=== PATIENT | male | born 1965 | race Caucasian/White ===

== ENCOUNTER 2017-01-10 20:55 | Emergency (ER) | payer OTHER ==
[2017-01-10 21:10] VITALS: BMI 27.3
[2017-01-10 21:36] LABS: URINE APPEARANCE CLEAR; URINE BILIRUBIN NEGATIVE (NEGATIVE); URINE BLOOD NEGATIVE (NEGATIVE); URINE COLOR LTYELLOW; URINE GLUCOSE (UA) NEGATIVE (NEGATIVE); URINE KETONE NEGATIVE (NEGATIVE); URINE LEUK ESTERASE NEGATIVE (NEGATIVE); URINE NITRITE NEGATIVE (NEGATIVE); URINE PROTEIN NEGATIVE (NEGATIVE); URINE UROBILINOGEN 2.0 E.U/dl E.U./dl (0.2-1.0)
[2017-01-10 21:53] LABS: BASOPHIL 0.6 % (0-2.0); EOSINOPHIL 2.9 % (0-4.5); MCH 33.6 pg (25.7-33.7); MCHC 34.9 g/dl (32.0-35.9); MEAN CELL VOLUME 96.1 fl (80-96); MEAN PLT VOLUME 8.8 fl (7.5-11.1); NEUTROPHILS 57.2 % (42.8-82.8); PLATELET COUNT 191 K/MM3 (134-434); RDW 13.6 % (11.9-15.9); WHITE BLOOD COUNT 9.1 K/mm3 (4.0-10.0)
[2017-01-10 22:32] LABS: ALBUMIN 3.6 g/dl (3.4-5.0); ALK PHOS 86 U/L (45-117); ANION GAP 11 (8-16); BILIRUBIN,TOTAL 0.2 mg/dL (0.2-1.0); CALCIUM 8.6 mg/dL (8.5-10.1); CO2 27 mmol/L (21-32); CREATININE 0.6 mg/dL (0.7-1.3); GLUCOSE,RANDOM 105 mg/dL (74-106); SGOT/AST 18 U/L (15-37); SGPT/ALT 23 U/L (12-78)
[2017-01-10] MEDS ORDERED: ACETAMINOPHEN 1000 MG/100 ML VIAL (NON FORMULARY) IVPB ONE (23:06)
--- NOTE | 2017-01-10 23:13 | PDOC ---
History of Present Illness <Annette Monroy - Last Filed: 01/11/17 01:40> - General History Source: Patient Exam Limitations: No Limitations - History of Present Illness Initial Comments: 01/10/17 23:14 Patient is a 51-year-old male complaining of upper abdominal pain 2-3 weeks, bright red stool per rectum 4 days and today left upper back pain. He states pain is 9/10, sharp, continuous, crampy like and the upper back pain is worse with movement. There are no alleviating factors. States that when he gets the abdominal pain he goes to the bathroom and stools are bright red. He denies any straining to pass a bowel, no hemorrhoids. He has no nausea, vomiting, hemoptysis, dizziness, weakness. He drinks only on the weekend. Smokes half a pack per day. Past medical history: Negative Past social history: Drinks on the weekends, half pack a day cigarettes. Family history: Noncontributory NKDA: None GENERAL/CONSTITUTIONAL: [No fever or chills. No weakness. No weight change.] HEAD, EYES, EARS, NOSE AND THROAT: [No change in vision. No ear pain or discharge. No sore throat.] CARDIOVASCULAR: [No chest pain or shortness of breath.] RESPIRATORY: [No cough, wheezing, or hemoptysis.] GASTROINTESTINAL: [No nausea, vomiting, diarrhea or constipation. No rectal bleeding.] GENITOURINARY: [No dysuria, frequency, or change in urination.] MUSCULOSKELETAL: [No joint or muscle swelling or pain. No neck or back pain.] SKIN AND BREASTS: [No rash or easy bruising.] NEUROLOGIC: [No headache, vertigo, loss of consciousness, or loss of sensation.] PSYCHIATRIC: [No depression or anxiety.] ENDOCRINE: [No increased thirst. No abnormal weight change.] HEMATOLOGIC/LYMPHATIC: [No anemia, easy bleeding, or history of blood clots.] ALLERGIC/IMMUNOLOGIC: [No hives or skin allergy. No latex allergy.] GENERAL: [The patient is awake, alert, and fully oriented, in mild distress] HEAD: [Normal with no signs of trauma.] EYES: [Pupils equal, round and reactive to light, extraocular movements intact, sclera anicteric, conjunctiva clear.] ENT: [Ears normal, nares patent, oropharynx clear without exudates. Moist mucous membranes.] NECK: [Normal range of motion, supple without lymphadenopathy, JVD, or masses.] LUNGS: [Breath sounds equal, clear to auscultation bilaterally. No wheezes, and no crackles, (+) tenderness to left back HEART: [Regular rate and rhythm, normal S1 and S2 without murmur, rub.] ABDOMEN: [Soft, (+) tenderness upper abd to palp, normoactive bowel sounds. No guarding, no rebound. No masses.] EXTREMITIES: [Normal range of motion, no edema. No clubbing or cyanosis. No cords, erythema, or tenderness.] RECTAL: no gross blood, blood tingled stool. NEUROLOGICAL: [Cranial nerves II through XII grossly intact. Normal speech, normal gait.] PSYCH: [Normal mood, normal affect.] SKIN: [Warm, Dry, normal turgor, no rashes or lesions noted.] <Nikolas Ford - Last Filed: 01/11/17 03:08> - General Chief Complaint: Pain, Acute Stated Complaint: BACK PAIN Time Seen by Provider: 01/10/17 21:58 Past History <Annette Monroy - Last Filed: 01/11/17 01:40> - Psycho/Social/Smoking Cessation Hx Suicidal Ideation: No Smoking History: Current every day smoker Information on smoking cessation initiated: No <Nikolas Ford - Last Filed: 01/11/17 03:08> - Past Medical History Allergies/Adverse Reactions: Allergies Allergy/AdvReac Type Severity Reaction Status Date / Time No Known Allergies Allergy Verified 01/10/17 21:05 Home Medications: Ambulatory Orders Ibuprofen [Motrin -] 600 mg PO TID 01/10/17 *Physical Exam - Vital Signs Last Vital Signs Temp Pulse Resp BP Pulse Ox 98.9 F 73 18 146/80 99 01/10/17 21:09 01/10/17 21:09 01/10/17 21:09 01/10/17 21:09 01/10/17 21:09 <Annette Monroy - Last Filed: 01/11/17 01:40> - Vital Signs Last Vital Signs Temp Pulse Resp BP Pulse Ox 98.9 F 73 18 146/80 99 01/10/17 21:09 01/10/17 21:09 01/10/17 21:09 01/10/17 21:09 01/10/17 21:09 <Nikolas Ford - Last Filed: 01/11/17 03:08> ED Treatment Course - LABORATORY CBC & Chemistry Diagram: 01/10/17 21:43 01/10/17 21:43 - ADDITIONAL ORDERS Additional order review: Laboratory Results 01/10/17 01/10/17 01/10/17 23:10 21:43 21:10 Sodium 141 Potassium 4.0 Chloride 103 Carbon Dioxide 27 Anion Gap 11 BUN 12 Creatinine 0.6 L Creat Clearance w eGFR > 60 Random Glucose 105 Calcium 8.6 Total Bilirubin 0.2 AST 18 ALT 23 Alkaline Phosphatase 86 Total Protein 7.0 Albumin 3.6 Urine Color Ltyellow Urine Appearance Clear Urine pH 7.0 Ur Specific [place] 1.020 Urine Protein Negative Urine Glucose (UA) Negative Urine Ketones Negative Urine Blood Negative Urine Nitrite Negative Urine Bilirubin Negative Urine Urobilinogen 2.0 e.u/dl Ur Leukocyte Esterase Negative Stool Occult Blood Positive 01/10/17 21:43 RBC 4.37 MCV 96.1 H MCHC 34.9 RDW 13.6 MPV 8.8 Neutrophils % 57.2 Lymphocytes % 33.9 Monocytes % 5.4 Eosinophils % 2.9 Basophils % 0.6 - Medications Given in the ED: ED Medications Discontinued Medications Generic Name Dose Route Start Last Admin Trade Name Sauravq PRN Reason Stop Dose Admin Acetaminophen 1,000 mg 01/10/17 23:06 01/10/17 23:57 Ofirmev Injection - IVPB 01/10/17 23:07 1,000 mg ONCE ONE Administration Morphine Sulfate 4 mg 01/10/17 23:23 01/10/17 23:26 Morphine Injection - IVPUSH 01/10/17 23:24 4 mg ONCE ONE Administration <Annette Monroy - Last Filed: 01/11/17 01:40> - LABORATORY CBC & Chemistry Diagram: 01/11/17 01:45 01/10/17 21:43 - ADDITIONAL ORDERS Additional order review: Laboratory Results 01/10/17 01/10/17 21:43 21:10 Sodium 141 Potassium 4.0 Chloride 103 Carbon Dioxide 27 Anion Gap 11 BUN 12 Creatinine 0.6 L Creat Clearance w eGFR > 60 Random Glucose 105 Calcium 8.6 Total Bilirubin 0.2 AST 18 ALT 23 Alkaline Phosphatase 86 Total Protein 7.0 Albumin 3.6 Urine Color Ltyellow Urine Appearance Clear Urine pH 7.0 Ur Specific [place] 1.020 Urine Protein Negative Urine Glucose (UA) Negative Urine Ketones Negative Urine Blood Negative Urine Nitrite Negative Urine Bilirubin Negative Urine Urobilinogen 2.0 e.u/dl Ur Leukocyte Esterase Negative 01/10/17 21:43 RBC 4.37 MCV 96.1 H MCHC 34.9 RDW 13.6 MPV 8.8 Neutrophils % 57.2 Lymphocytes % 33.9 Monocytes % 5.4 Eosinophils % 2.9 Basophils % 0.6 - RADIOLOGY Radiology Studies Ordered: Category Date Time Status ABDOMEN & PELVIS CT WITH CONTR [CT] Stat CT Scan 01/10/17 22:58 Ordered CHEST PA & LAT [RAD] Stat Radiology 01/10/17 22:58 Ordered <Nikolas Ford - Last Filed: 01/11/17 03:08> Medical Decision Making - Medical Decision Making 01/10/17 23:26 Patient is a 51-year-old male complaining of upper abdominal pain 2-3 weeks, bright red stool per rectum 4 days and today left upper back pain consitent with GI bleeding r/o upper GI vs lower GI, ct abd/pelivis, labs, Morphine 4mg IV for pain reassess 01/11/17 00:19 Patient Name: Britton Henriquez THIS IS A PRELIMINARYREPORT FROM [facility] EXAM: CT abdomen and pelvis with contrast IMAGES: [id number] INDICATION: Abdominal pain DATE OF SERVICE: 2017-01-10 23:34:32.0 COMPARISON: none FINDINGS: Lung bases are clear. The visualized cardiac chambers are normal size and configuration. Normal liver, gallbladder, pancreas, spleen, adrenal glands and kidneys. The stomach and abdominal small and large bowel are normal. There is no aortic aneurysm. There is mild nonspecific retroperitoneal lymphadenopathy, possibly from old inflammatory or infectious pathology. Tiny fat containing umbilical hernia is noted.. The pelvic small and large bowel are normal. The appendix is normal. The urinary bladder and prostate gland are normal. No pelvic free fluid is identified. There is no significant pelvic lymphadenopathy. IMPRESSION: No evidence of acute pathology. THIS DOCUMENT HAS BEEN ELECTRONICALLY SIGNED Afshin Osman MD 01/11/2017 00:11 BRIANA García Please call [facility] [phone] ([phone]) with questions 01/11/17 01:45 Patient is feeling better after the pain meds will get 4 hour cbc and discharge if stable 01/11/17 03:04 cbc unchanged from prior will discharge I discussed the physical exam findings, ancillary test results and final diagnoses with the patient. I answered all of the patient's questions. The patient was satisfied with the care received and felt comfortable with the discharge plan and treatment plan. The Patient agrees to follow up with the primary care physician within 24-72 hours. <Nikolas Ford - Last Filed: 01/11/17 03:08> *DC/Admit/Observation/Transfer <Annette Monryo - Last Filed: 01/11/17 01:40> <Nikolas Ford - Last Filed: 01/11/17 03:08> Diagnosis at time of Disposition: GI bleed Qualifiers: GI bleed type/associated pathology: unspecified gastrointestinal hemorrhage type Qualified Code(s): K92.2 - Gastrointestinal hemorrhage, unspecified - Discharge Dispostion Disposition: HOME Condition at time of disposition: Stable - Referrals Referrals: Jameel Schroeder MD [Staff Physician] - - Patient Instructions Printed Discharge Instructions: Gastrointestinal Bleeding, DI for Colonoscopy Additional Instructions: Your Discharge Instructions: You must call primary care physician within 24 hours to arrange follow-up. Return to the Emergency Department with any new, persistent or worsening symptoms, for fever, chills, SOB, dizziness or any other concerning changes that may occur.
[2017-01-10] MEDS ORDERED: morphine CARPU-JECT 4 MG/1 ML DISP.SYRIN ONE (23:23)
[2017-01-10] MEDS ORDERED: morphine CARPU-JECT 4 MG/1 ML DISP.SYRIN IVPUSH ONE (23:23)
[2017-01-10] MEDS ORDERED: ACETAMINOPHEN INJECTION 100 ML IVPB ONE (23:56)
[2017-01-11 01:52] LABS: BASOPHIL 0.8 % (0-2.0); EOSINOPHIL 2.7 % (0-4.5); MCH 33.9 pg (25.7-33.7); MEAN CELL VOLUME 96.8 fl (80-96); MEAN PLT VOLUME 9.1 fl (7.5-11.1); NEUTROPHILS 57.2 % (42.8-82.8); PLATELET COUNT 200 K/MM3 (134-434); RDW 13.7 % (11.9-15.9); WHITE BLOOD COUNT 10.5 K/mm3 (4.0-10.0)
[2017-01-11 02:41] VITALS: TEMP 98.1
[2017-01-11 03:39] VITALS: BP 127/75; PULSE 80
== END 2017-01-11 03:43 | disposition home or self-care (01) ==
LOC: JER 20:55
PROC: 3E033NZ Introduction of Analgesics, Hypnotics, Sedatives into Peripheral Vein, Percutaneous Approach (ICD-10-PCS; principal; 2017-01-10)
DX: K92.2 Gastrointestinal hemorrhage, unspecified (principal)
CPT/HCPCS: 36415; 71020-TC; 74177-TC; 80053; 81003; 82272; 85025; 87086; 99285-25

== ENCOUNTER 2017-07-18 08:11 | Inpatient (IN) | payer OTHER ==
--- NOTE | 2017-07-18 08:48 | PDOC ---
History of Present Illness - General Chief Complaint: Pain, Acute Stated Complaint: PAIN Time Seen by Provider: 07/18/17 08:41 - History of Present Illness Initial Comments: 07/18/17 10:09 The patient is a 52 year old male who presents for evaluation of abdominal pain. The patient reports a 2 week history of abdominal pain that he describes as a pressure or bloating sensation. He notes some nausea throughout this time , but denies any vomiting. He states that the pain was not improving prompting his presentation to the ED today. He reports some intermittent diarrhea as well as subjective fevers at home. He denies SOB or chest pain. Past History - Past Medical History Allergies/Adverse Reactions: Allergies Allergy/AdvReac Type Severity Reaction Status Date / Time No Known Allergies Allergy Verified 07/18/17 08:19 Home Medications: Ambulatory Orders NK [No Known Home Medication] 07/18/17 Other medical history: abd hernia - Suicide/Smoking/Psychosocial Hx Smoking History: Current every day smoker Have you smoked in the past 12 months: Yes Number of Cigarettes Smoked Daily: 10 Information on smoking cessation initiated: Yes 'Breaking Loose' booklet given: 07/18/17 Hx Alcohol Use: Yes Drug/Substance Use Hx: No Substance Use Type: Alcohol Review of Systems - Review of Systems Comments:: 07/18/17 10:12 Constitutional: Fevers. No chills, fatigue, malaise HEENT: No Rhinorrhea, nasal congestion, Cardiovascular: No chest pain, syncope, palpitations, lightheadedness Respiratory: No Cough, SOB, Hemoptysis, Gastrointestinal: Abdominal pain, nausea, diarrhea. No Vomiting, Constipation, Melena Genitourinary: Increased frequency. No Dysuria, Urgency, Hesitancy, Hematuria, Musculoskeletal: No Myalgia, arthralgia Skin: No rashes, bruising, pallor Neurologic: No Headache, Dizziness, Numbness, Weakness, or Tingling *Physical Exam - Vital Signs Last Vital Signs Temp Pulse Resp BP Pulse Ox 98.5 F 84 18 111/61 100 07/18/17 08:20 07/18/17 08:20 07/18/17 08:20 07/18/17 08:20 07/18/17 08:20 - Physical Exam Comments: 07/18/17 10:13 General Appearance: Nourished. No Apparent Distress HEENT: EOMI, JAYNE. No Pharyngeal Erythema, Tonsillar Exudate, Tonsillar Erythema Neck: No Cervical Lymphadenopathy Respiratory/Chest: Lungs Clear, Normal Breath Sounds. No Crackles, Rales, Rhonchi, Wheezing Cardiovascular: Regular Rhythm, Regular Rate. No Murmur, Gallops, Rubs Gastrointestinal/Abdominal: Normal Bowel Sounds, Soft. Tenderness to palpation in the LLQ. No Guarding, Rebound, Musculoskeletal: No CVA Tenderness Extremity: Normal Capillary Refill Integumentary: Normal Color, Dry, Warm Neurologic: Fully Oriented, Alert, Normal Mood/Affect, Normal Response, ED Treatment Course - LABORATORY CBC & Chemistry Diagram: 07/18/17 09:00 07/18/17 09:00 Medical Decision Making - Medical Decision Making 07/18/17 10:17 The patient is a 52 year old male who presents for evaluation of abdominal pain. Differential includes but is not limited to: Gastritis, pancreatitis, colitis, diverticulitis, metabolic derangement. Given the patient's complaints of bloating abdominal pain with associated intermittent diarrhea and tenderness on exam, it is possible his symptoms are due to a colitis or diverticulitis. We will obtain a cbc, cmp, lipase, and UA to evaluate further. We will also obtain a ct abodmen pelvis with contrast to evaluate for colitis or diverticulitis. 07/18/17 17:32 CT abdomen pelvis demonstrated a 5.5cm liver abscess. The patient denies any recent travel and states that he is from [facility], but has not been back in 3 years. He reports no recent travel within the last 6 [address]. Previous [address] abdomen done 12/2016 did not demonstrate any liver abscess. cbc was remarkable for a wbc elevation of 12.8. cmp, lipase were unremarkable. We have obtained blood cultures and started zosyn for antibiotic coverage here in the ED. We discussed with the hospitalist team who accepted the patient for admission. We discussed the results with the patient as well as the need for admission and the patient voiced understanding and is agreeable with the plan. *DC/Admit/Observation/Transfer Diagnosis at time of Disposition: Liver abscess - Discharge Dispostion Condition at time of disposition: Stable Admit: Yes - Referrals Referrals: Wen Donahue [Primary Care Provider] -
[2017-07-18] MEDS ORDERED: FAMOTIDINE 20 MG/50 ML IVPB 50 ML IVPB ONE ×2 (08:58→09:07)
[2017-07-18] MEDS ORDERED: MAG HYDROX/AL HYDROX/SIMETH 30 ML UNIT-DOSE CUP PO ONE (08:58)
[2017-07-18] MEDS ORDERED: ONDANSETRON 4 MG/2 ML VIAL IVPUSH ONE (08:58)
[2017-07-18] MEDS ORDERED: MAG HYDROX/AL HYDROX/SIMETH 30 ML UNIT-DOSE CUP ONE (09:07)
[2017-07-18] MEDS ORDERED: ONDANSETRON 4 MG/2 ML VIAL ONE (09:07)
[2017-07-18 09:18] LABS: BASOPHIL 0.4 % (0-2.0); EOSINOPHIL 0.7 % (0-4.5); MCH 33.1 pg (25.7-33.7); MCHC 34.3 g/dl (32.0-35.9); MEAN CELL VOLUME 96.5 fl (80-96); MEAN PLT VOLUME 7.9 fl (7.5-11.1); NEUTROPHILS 76.3 % (42.8-82.8); PLATELET COUNT 426 K/MM3 (134-434); RDW 13.2 % (11.9-15.9); WHITE BLOOD COUNT 12.8 K/mm3 (4.0-10.0)
[2017-07-18 09:43] LABS: ALBUMIN 2.8 g/dl (3.4-5.0); ANION GAP 6 (8-16); BILIRUBIN,TOTAL 0.3 mg/dL (0.2-1.0); CALCIUM 8.3 mg/dL (8.5-10.1); CO2 29 mmol/L (21-32); CREATININE 0.5 mg/dL (0.7-1.3); GLUCOSE,RANDOM 113 mg/dL (74-106); SGOT/AST 13 U/L (15-37); SGPT/ALT 29 U/L (12-78); TOT PROT 7.1 g/dl (6.4-8.2)
[2017-07-18 09:44] LABS: ALK PHOS 115 U/L (45-117)
[2017-07-18 09:45] LABS: PH,URINE 6.5 (5.0-8.0); URINE APPEARANCE CLEAR; URINE BILIRUBIN NEGATIVE (NEGATIVE); URINE BLOOD NEGATIVE (NEGATIVE); URINE COLOR LT. YELLOW; URINE GLUCOSE (UA) NEGATIVE (NEGATIVE); URINE KETONE NEGATIVE (NEGATIVE); URINE NITRITE NEGATIVE (NEGATIVE); URINE PROTEIN NEGATIVE (NEGATIVE); URINE UROBILINOGEN 0.2 mg/dL (0.2-1.0)
--- NOTE | 2017-07-18 10:30 | PDOC ---
Attending Attestation - Resident Resident Name: Alvarez Ríos - ED Attending Attestation I have performed the following: I have examined & evaluated the patient, The case was reviewed & discussed with the resident, I agree w/resident's findings & plan, Exceptions are as noted - HPI HPI: 07/18/17 10:27 52 m with no PMH presents to ER with 2 weeks of progressively worsening abdominal pain. Pt reports pain in his LLQ that is non-radiating, colicky. He endorses nausea as well without vomiting. Pt also states that he has had a few episodes of loose stools. He denies F/C. Denies CP/SOB. Denies dark stools or BRBPR. Denies dysuria. Pt has had ventral hernia for some time and states that is is always easily reducible. Denies any pain around the hernia. Denies abdominal distention. - Physicial Exam PE: 07/18/17 10:29 "GENERAL: Awake, alert, and fully oriented, in no acute distress HEAD: No signs of trauma EYES: PERRLA, EOMI, sclera anicteric, conjunctiva clear ENT: Auricles normal inspection, hearing grossly normal, nares patent, oropharynx clear without exudates. Moist mucosa NECK: Nontender, no stepoffs, Normal ROM, supple, no lymphadenopathy, JVD, or masses LUNGS: Breath sounds equal, clear to auscultation bilaterally. No wheezes, and no crackles HEART: Regular rate and rhythm, normal S1 and S2, no murmurs, rubs or gallops ABDOMEN: soft, nondistended, +LLQ tenderness without rebound/guarding EXTREMITIES: Normal range of motion, no edema. No clubbing or cyanosis. No cords, erythema, or tenderness NEUROLOGICAL: Cranial nerves II through XII intact. 5/5 strength and sensation in all extremities, Normal speech, normal gait SKIN: Warm, Dry, normal turgor, no rashes or lesions noted. " - Medical Decision Making 07/18/17 10:29 52 M with LLQ pain, concerning for colitis vs diverticulitis. - Labs, UA - CTAP 07/18/17 22:40 CT shows liver abscess. IV abx initiated. Pt to be admitted for GI consultation , possible IR drainage of abscess. Case discussed in detail with admitting physician including history, physical exam and ancillary studies. Admitting physician has assumed care for the patient and will follow all pending diagnostics and complete the evaluation and treatment.
[2017-07-18 14:39] LABS: URINE LEUK ESTERASE Negative (NEGATIVE)
[2017-07-18] MEDS ORDERED: SODIUM CHLORIDE 1,000 ML IV STA (14:42)
[2017-07-18] MEDS ORDERED: morphine CARPU-JECT 4 MG/1 ML DISP.SYRIN IVPUSH ONE (14:57)
[2017-07-18] MEDS ORDERED: morphine CARPU-JECT 8 MG/1 ML DISP.SYRIN ONE (15:13)
[2017-07-18] MEDS ORDERED: PIPERACILLIN/TAZOB 3.375 GM 50 ML IVPB ONE ×2 (15:41→15:45)
--- NOTE | 2017-07-18 16:58 | HP ---
CHIEF COMPLAINT: HISTORY OF PRESENT ILLNESS: Patient is a 52 year old male with no PMHx who presented for LUQ abdominal pain that started two weeks ago. Patient describes the pain as pressure/bloating like and radiates to the periumbilical region associated with subjective fevers , nausea, decreased appetite, chills, and hot flashes. Patient denies any recent travel or changes in diet. Patient did report having pork twice this month (07/06 and 07/13). Patient admits to never having a colonoscopy and missing his recent appointment. Denies any chronic NSAID use. Otherwise, patient denies chest pain, palpitations, shortness of breath, headaches, vomiting. HOME MEDICATIONS: Home Medications Medication Instructions Recorded NK [No Known Home Medication] 07/18/17 PHYSICAL EXAMINATION Vital Signs - 24 hr 07/18/17 07/18/17 08:20 15:30 Temperature 98.5 F 99.5 F Pulse Rate 84 Pulse Rate [ 72 Radial] Respiratory 18 18 Rate Blood Pressure 111/61 Blood Pressure 124/64 [Left Arm] O2 Sat by Pulse 100 95 Oximetry (%) GENERAL: Awake, alert, and fully oriented, in no acute distress. HEAD: Normal with no signs of trauma. EYES: Pupils equal, round and reactive to light, extraocular movements intact, sclera anicteric, conjunctiva clear. No lid lag. EARS, NOSE, THROAT: Oropharynx clear without exudates. Moist mucous membranes. NECK: Supple without lymphadenopathy, JVD, or masses. LUNGS: Breath sounds equal, clear to auscultation bilaterally. No wheezes, and no crackles. No accessory muscle use. HEART: Regular rate and rhythm, normal S1 and S2 without murmur, rub or gallop. ABDOMEN: Soft, distended, mild tenderness upon palpation of LUQ, LLQ, and periumbilical region. Normoactive bowel sounds. MUSCULOSKELETAL: No CVA tenderness. UPPER EXTREMITIES: No peripheral edema. LOWER EXTREMITIES: No peripheral edema. NEUROLOGICAL: Cranial nerves II-XII intact. Normal speech. motor strength 5/5 bilaterally. Sensory intact PSYCHIATRIC: Cooperative. Good eye contact. Appropriate mood and affect. SKIN: Warm, dry, normal turgor, no rashes or lesions noted, normal capillary refill. Laboratory Results - last 24 hr 07/18/17 07/18/17 07/18/17 09:00 09:00 09:00 WBC 12.8 H RBC 3.72 L Hgb 12.3 D Hct 35.9 MCV 96.5 H MCH 33.1 MCHC 34.3 RDW 13.2 Plt Count 426 D MPV 7.9 D Neutrophils % 76.3 D Lymphocytes % 14.3 D Monocytes % 8.3 Eosinophils % 0.7 Basophils % 0.4 Sodium 137 Potassium 4.0 Chloride 102 Carbon Dioxide 29 Anion Gap 6 L BUN 9 D Creatinine 0.5 L Creat Clearance w eGFR > 60 Random Glucose 113 H Lactic Acid 1.0 Calcium 8.3 L Total Bilirubin 0.3 D AST 13 L D ALT 29 D Alkaline Phosphatase 115 D Total Protein 7.1 Albumin 2.8 L D Lipase 105 Urine Color Urine Appearance Urine pH Ur Specific [place] Urine Protein Urine Glucose (UA) Urine Ketones Urine Blood Urine Nitrite Urine Bilirubin Urine Urobilinogen Ur Leukocyte Esterase 07/18/17 09:15 WBC RBC Hgb Hct MCV MCH MCHC RDW Plt Count MPV Neutrophils % Lymphocytes % Monocytes % Eosinophils % Basophils % Sodium Potassium Chloride Carbon Dioxide Anion Gap BUN Creatinine Creat Clearance w eGFR Random Glucose Lactic Acid Calcium Total Bilirubin AST ALT Alkaline Phosphatase Total Protein Albumin Lipase Urine Color Lt. yellow Urine Appearance Clear Urine pH 6.5 Ur Specific [place] 1.020 Urine Protein Negative Urine Glucose (UA) Negative Urine Ketones Negative Urine Blood Negative Urine Nitrite Negative Urine Bilirubin Negative Urine Urobilinogen 0.2 Ur Leukocyte Esterase Negative IMAGES: CT Abdomen (07/18/17): Interval low-attenuation cystic density in the left lateral margin of the left hepatic lobe measuring approximately 5.5 cm in diameter with stranding of the adjacent fat/mesentery suspicious for an abscess. Further evaluation is recommended. Multiple subcentimeter retroperitoneal lymph nodes which are nonspecific. Scattered diverticula in the colon without evidence of acute diverticulitis. There is in adequate distention of the cecum with suggestion of wall thickening. No free air or free fluid in the abdomen and pelvis. Stable 5 mm pulmonary nodule in the right middle lobe ASSESSMENT/PLAN: Patient is a 52 year old male with no PMHx who presented for LUQ abdominal pain and was found to have a liver abscess on CT abdomen measuring 5.5cm. Patient admitted for further monitoring and management. Liver Abscess -No signs of septic shock -CT revealed stranding of the fat/mesentery suspicious for abscess -WBC 12.8 -Zosyn 3.375mg IV Q8H ordered for emperic coverage -IV NS @75mls/hr once patient is NPO -Morphine 2mg IV Q4H PRN for pain control -IR consult placed -GI consult placed -ID consult placed -Blood cultures pending Discussed Case with medical team, Dr. Ramirez and Dr. Ford. Full H&P to follow. Mary Ellen Lee, PGY-2 Visit type - Emergency Visit Emergency Visit: Yes ED Registration Date: 07/18/17 Care time: The patient presented to the Emergency Department on the above date and was hospitalized for further evaluation of their emergent condition. - New Patient This patient is new to me today: Yes Date on this admission: 07/18/17 - Critical Care Critical Care patient: No
[2017-07-18] MEDS ORDERED: morphine CARPU-JECT 8 MG/1 ML DISP.SYRIN IVPUSH PRN (17:00)
[2017-07-18] MEDS ORDERED: PIPERACILLIN/TAZOB 3.375 GM 50 ML IVPB SCH ×2 (18:00)
[2017-07-18 18:50] VITALS: BMI 28.3
--- NOTE | 2017-07-18 18:52 | HP ---
CHIEF COMPLAINT: abdominal pain HISTORY OF PRESENT ILLNESS: 52yo M with no significant PMH presents c/o abdominal pain x 2 weeks. Pain is described as pressure/bloating, non-radiating, in the LUQ and periumbilical regions. Pain is rated 8/10. Pt has not had these symptoms before. Pt also reports intermittent symptoms x 2 weeks including: subjective fever, nausea, diarrhea, joint pain in the devin UE, decreased appetite, hot flashes and chills. CT ab/pel reveals a cyst in the liver suggestive on an abscess. Pt denies recent travel, sick contacts. Pt reports eating pork on 07/06/17 and on . Pt requests that results regarding this liver cyst only be reported to him , and not to his family. ER course was notable for: (1) CT ab/pelvis -> 5.5cm hypodense cyst in Left lateral margin of Left hepatic lobe with associated fat stranding suspicious for abscess. (2) EKG -> NSR, incomplete RBBB. (3) Morphine 4mg IVpush for pain, NS 1 L bolus, Zosyn 3.375g IVPB Recent Travel: denies. Pt from [facility], but last traveled there 3 yrs ago. PAST MEDICAL HISTORY: abdominal hernia PAST SURGICAL HISTORY: denies Social History: Smokin cigarettes per day now, recently cut back from 1.5 ppd since age 16 yrs. Alcohol: 4-5 beers on weekends Drugs: denies Allergies No Known Allergies Allergy (Verified 07/18/17 08:19) HOME MEDICATIONS: Home Medications Medication Instructions Recorded NK [No Known Home Medication] 07/18/17 REVIEW OF SYSTEMS: as above CONSTITUTIONAL: Present: subjective fever, chills, loss of appetite Absent: diaphoresis, generalized weakness, malaise, weight change HEENT: Absent: rhinorrhea, nasal congestion, throat pain, throat swelling, difficulty swallowing, ear pain, eye pain, visual changes CARDIOVASCULAR: Absent: chest pain, syncope, palpitations, irregular heart rate, lightheadedness , peripheral edema RESPIRATORY: Absent: cough, shortness of breath, wheezing, stridor, hemoptysis GASTROINTESTINAL: Present: abdominal pain, nausea, diarrhea Absent: abdominal distension, vomiting, constipation, melena, hematochezia GENITOURINARY: Present: increased frequency Absent: dysuria, hematuria MUSCULOSKELETAL: Present: arthralgia to devin UE: shoulders, elbows, wrists Absent: myalgia, joint swelling, back pain, neck pain SKIN: Absent: rash, itching, pallor ENDOCRINE: Present: increased thirst, hot flashes, chills Absent: unexplained weight gain, unexplained weight loss NEUROLOGIC: Absent: headache, focal weakness or paresthesias, dizziness, unsteady gait PHYSICAL EXAMINATION Vital Signs - 24 hr 07/18/17 07/18/17 08:20 15:30 Temperature 98.5 F 99.5 F Pulse Rate 84 Pulse Rate [ 72 Radial] Respiratory 18 18 Rate Blood Pressure 111/61 Blood Pressure 124/64 [Left Arm] O2 Sat by Pulse 100 95 Oximetry (%) GENERAL: Awake, alert, and fully oriented, in no acute distress. HEAD: Normal with no signs of trauma. EYES: Extraocular movements intact, slight sclera icterus, no conjunctival pallor. No lid lag. EARS, NOSE, THROAT: Oropharynx clear without exudates. Moist mucous membranes. NECK: Normal range of motion, supple without lymphadenopathy or masses. LUNGS: Breath sounds equal, clear to auscultation bilaterally. No wheezes, and no crackles. No accessory muscle use. HEART: Regular rate and rhythm, normal S1 and S2 without murmur, rub or gallop. ABDOMEN: LUQ and periunbilical regions tender to palpation. Soft, not distended , normoactive bowel sounds, no guarding, no rebound, no masses. +hepatomegaly on percussion. -Wayne's sign. MUSCULOSKELETAL: +CVA tenderness devin. No creptius/deformity to joints of the devin UE. UPPER EXTREMITIES: Warm, well-perfused. No cyanosis. No clubbing. No peripheral edema. Missing distal phalanx on Left 2nd digit. LOWER EXTREMITIES: Warm, well-perfused. No calf tenderness. No peripheral edema. RECTAL: no hemorrhoids, no stool in the rectal vault. PSYCHIATRIC: Cooperative. Good eye contact. Appropriate mood and affect. SKIN: Warm, dry, normal turgor, no rashes or lesions noted. Laboratory Results - last 24 hr 07/18/17 07/18/17 07/18/17 09:00 09:00 09:00 WBC 12.8 H RBC 3.72 L Hgb 12.3 D Hct 35.9 MCV 96.5 H MCH 33.1 MCHC 34.3 RDW 13.2 Plt Count 426 D MPV 7.9 D Neutrophils % 76.3 D Lymphocytes % 14.3 D Monocytes % 8.3 Eosinophils % 0.7 Basophils % 0.4 Sodium 137 Potassium 4.0 Chloride 102 Carbon Dioxide 29 Anion Gap 6 L BUN 9 D Creatinine 0.5 L Creat Clearance w eGFR > 60 Random Glucose 113 H Lactic Acid 1.0 Calcium 8.3 L Total Bilirubin 0.3 D AST 13 L D ALT 29 D Alkaline Phosphatase 115 D Total Protein 7.1 Albumin 2.8 L D Lipase 105 Urine Color Urine Appearance Urine pH Ur Specific [place] Urine Protein Urine Glucose (UA) Urine Ketones Urine Blood Urine Nitrite Urine Bilirubin Urine Urobilinogen Ur Leukocyte Esterase 07/18/17 09:15 WBC RBC Hgb Hct MCV MCH MCHC RDW Plt Count MPV Neutrophils % Lymphocytes % Monocytes % Eosinophils % Basophils % Sodium Potassium Chloride Carbon Dioxide Anion Gap BUN Creatinine Creat Clearance w eGFR Random Glucose Lactic Acid Calcium Total Bilirubin AST ALT Alkaline Phosphatase Total Protein Albumin Lipase Urine Color Lt. yellow Urine Appearance Clear Urine pH 6.5 Ur Specific [place] 1.020 Urine Protein Negative Urine Glucose (UA) Negative Urine Ketones Negative Urine Blood Negative Urine Nitrite Negative Urine Bilirubin Negative Urine Urobilinogen 0.2 Ur Leukocyte Esterase Negative IMAGIN07/18/17 CT ab/pel -> 5.5cm hypodense cyst in Left lateral margin of Left hepatic lobe with associated fat stranding suspicious for abscess. 07/18/17 EKG -> NSR, incomplete RBBB. ASSESSMENT/PLAN: 52yo M with no significant PMH presents c/o abdominal pain x 2 weeks, found to have liver cyst on CT, admitted to Med-Surg. 1) liver cyst - Ddx: abscess vs parasitic vs Ca - Previous CT abdomen 12/2016 did not demonstrate a cyst in the liver, suggesting this is a new finding. - GI consult - ID consult - continue Zosyn - IR consult - continue morphine 2mg IVpush q4hr prn for pain - leukocytosis noted, continue to monitor - f/u blood cultures - f/u FOBT 2) devin CVA tenderness - f/u urine culture - UA (-) 3) hyperglycemia - increased thirst and urinary frequency reported - f/u hgba1c 4) FEN - Fluids: NS @ 75 ml/hr to start at midnight - Electrolytes: wnl, continue to monitor - Nutrition: Regular diet, npo after midnight in case a procedure is necessary tomorrow 5) DVT prophylaxis - devin SCDs Visit type - Emergency Visit Emergency Visit: Yes ED Registration Date: 07/18/17 Care time: The patient presented to the Emergency Department on the above date and was hospitalized for further evaluation of their emergent condition. - New Patient This patient is new to me today: Yes Date on this admission: 07/18/17 - Critical Care Critical Care patient: No
--- NOTE | 2017-07-18 19:33 | PN ---
Teaching Attending Note Name of Resident: Sarah Ybarra ATTENDING PHYSICIAN STATEMENT I saw and evaluated the patient. I reviewed the resident's note and discussed the case with the resident. I agree with the resident's findings and plan as documented. SUBJECTIVE: Patient is a 52 year old male with no PMHx who presented for LUQ abdominal pain that started two weeks ago. Patient describes the pain as pressure/bloating like and radiates to the periumbilical region associated with subjective fevers , nausea, decreased appetite, chills, and hot flashes. Patient denies any recent travel or changes in diet. Patient did report having pork twice this month (07/06 and 07/13). Patient admits to never having a colonoscopy and missing his recent appointment. Denies any chronic NSAID use. Otherwise, patient denies chest pain, palpitations, shortness of breath, headaches, vomiting. OBJECTIVE: Vital Signs Temperature 98.8 F 07/18/17 16:20 Pulse Rate 76 07/18/17 16:20 Respiratory Rate 20 07/18/17 16:20 Blood Pressure 130/80 07/18/17 16:20 O2 Sat by Pulse Oximetry (%) 95 07/18/17 15:30 CBCD WBC 12.8 K/mm3 (4.0-10.0) H 07/18/17 09:00 RBC 3.72 M/mm3 (4.00-5.60) L 07/18/17 09:00 Hgb 12.3 GM/dL (11.7-16.9) D 07/18/17 09:00 Hct 35.9 % (35.4-49) 07/18/17 09:00 MCV 96.5 fl (80-96) H 07/18/17 09:00 MCHC 34.3 g/dl (32.0-35.9) 07/18/17 09:00 RDW 13.2 % (11.9-15.9) 07/18/17 09:00 Plt Count 426 K/MM3 (134-434) D 07/18/17 09:00 MPV 7.9 fl (7.5-11.1) D 07/18/17 09:00 CMP Sodium 137 mmol/L (136-145) 07/18/17 09:00 Potassium 4.0 mmol/L (3.5-5.1) 07/18/17 09:00 Chloride 102 mmol/L (98-107) 07/18/17 09:00 Carbon Dioxide 29 mmol/L (21-32) 07/18/17 09:00 Anion Gap 6 (8-16) L 07/18/17 09:00 BUN 9 mg/dL (7-18) D 07/18/17 09:00 Creatinine 0.5 mg/dL (0.7-1.3) L 07/18/17 09:00 Creat Clearance w eGFR > 60 (>60) 07/18/17 09:00 Random Glucose 113 mg/dL (74-106) H 07/18/17 09:00 Calcium 8.3 mg/dL (8.5-10.1) L 07/18/17 09:00 Total Bilirubin 0.3 mg/dL (0.2-1.0) D 07/18/17 09:00 AST 13 U/L (15-37) L D 07/18/17 09:00 ALT 29 U/L (12-78) D 07/18/17 09:00 Alkaline Phosphatase 115 U/L (45-117) D 07/18/17 09:00 Total Protein 7.1 g/dl (6.4-8.2) 07/18/17 09:00 Albumin 2.8 g/dl (3.4-5.0) L D 07/18/17 09:00 Current Medications Generic Name Dose Route Start Last Admin Trade Name Freq PRN Reason Stop Dose Admin Sodium Chloride 1,000 mls @ 75 mls/hr 07/19/17 00:00 Normal Saline - IV 07/20/17 13:19 ASDIR CLAY Piperacillin/Tazobactam/Dextrose 50 mls @ 100 mls/hr 07/18/17 18:00 Zosyn 3.375gm Ivpb (Premix) IVPB Q8H-IV CLAY Protocol Piperacillin/Tazobactam/Dextrose 50 mls @ 100 mls/hr 07/18/17 18:00 Zosyn 3.375gm Ivpb (Premix) IVPB 07/19/17 02:29 Q8H-IV CLAY Protocol Influenza Virus Vaccine Quadrival 60 mcg 07/18/17 18:50 Flulaval Quad [id number] IM 07/18/17 18:51 .ONCE ONE Morphine Sulfate 2 mg 07/18/17 17:00 Morphine Sulfate IVPUSH Q4H PRN PAIN Home Medications Medication Instructions Recorded NK [No Known Home Medication] 07/18/17 PE: diffuse abdominal pain L>R rest of PE per resident's note 07/18/17 EKG -> NSR, incomplete RBBB. ASSESSMENT AND PLAN: 52yo M with no significant PMH presents c/o abdominal pain x 2 weeks, found to have liver cyst on CT, admitted to Med-Surg. # Acute liver cyst : abscess vs parasitic .CT abdomen 12/2016 did not demonstrate a cyst in the liver, suggesting this is a new finding. 07/18/17 CT ab/pel -> 5.5cm hypodense cyst in Left lateral margin of Left hepatic lobe with associated fat stranding suspicious for abscess. # Acute CVA tenderness bl: f/u urine culture # Acute hyperglycemia f/u hgbA1c DVT prophylaxis: SCDs
[2017-07-18] MEDS ORDERED: FLU VACCINE QUAD 60 MCG/0.5 ML (MDV 17-18) IM ONE (19:45)
[2017-07-18] MEDS ORDERED: PT OWN MED DRAWER 7, Y5N ONE (19:49)
[2017-07-18] MEDS: METRONIDAZOLE 500 MG PREMIXED 100 ML IVPB SCH (20:58)
[2017-07-18] MEDS: CEFTRIAXONE 1 G/50 ML PREMIX 50 ML IVPB SCH (22:28)
[2017-07-19] MEDS: SODIUM CHLORIDE 1,000 ML IV SCH ×2 (00:14→21:45)
[2017-07-19] MEDS: METRONIDAZOLE 500 MG PREMIXED 100 ML IVPB SCH ×3 (02:32→17:56)
[2017-07-19 07:21] LABS: MCH 33.5 pg (25.7-33.7); MCHC 34.8 g/dl (32.0-35.9); MEAN CELL VOLUME 96.3 fl (80-96); PLATELET COUNT 428 K/MM3 (134-434); RDW 13.1 % (11.9-15.9); WHITE BLOOD COUNT 11.9 K/mm3 (4.0-10.0)
[2017-07-19 07:37] LABS: ALBUMIN 2.6 g/dl (3.4-5.0); ANION GAP 8 (8-16); CALCIUM 7.9 mg/dL (8.5-10.1); CO2 27 mmol/L (21-32); GLUCOSE,RANDOM 91 mg/dL (74-106); MAGNESIUM 2.3 mg/dL (1.8-2.4)
[2017-07-19 07:42] LABS: ALK PHOS 111 U/L (45-117); BILIRUBIN,TOTAL 0.3 mg/dL (0.2-1.0); CREATININE 0.5 mg/dL (0.7-1.3); PHOSPHOROUS 3.3 mg/dL (2.5-4.9); SGOT/AST 14 U/L (15-37); SGPT/ALT 25 U/L (12-78); TOT PROT 6.5 g/dl (6.4-8.2)
[2017-07-19 08:42] LABS: INR 1.3 (0.82-1.09); PROTHROMBIN TIME (PATIENT) 14.7 SEC (9.98-11.88)
[2017-07-19 08:45] LABS: ACTIVATED PTT 32.1 SECONDS (26.9-34.4)
--- NOTE | 2017-07-19 09:32 | PN ---
Progress Note (short form) - Note Progress Note: ID 52 year old male presents with RUQ and LUQ abd pain for 2 weeks. Associated nausea weight loss loss of appetite subjective fevers along with night sweats. Episode of severe abd pains Birdie seen in ER and discharged ( CT was negative). HEre CT shows diverticula and solitary 5.5 cm liver left lobe collection ? abscess. His appendix was normal and CT otherwise negative except for "stable 5mm" pulmonary nodule. No history of TB or HIV testing. Says 1 month ago he ate food "fish" that was sent from [facility]. No other dietary changes and no one else ill at home. 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 Selected Entries 07/19/17 06:00 Temperature 99.1 F Pulse Rate 70 Respiratory 20 Rate Blood Pressure 106/62 Lung Clear Cor S1 S2 RR no murmur Abd Soft Tender moderate RUQ LUQ Ext No CCE Microbiology Laboratory Tests 07/18/17 07/18/17 07/19/17 09:00 09:15 06:30 WBC 12.8 H RBC 3.72 L Hgb 12.3 D Plt Count 426 D Sodium 135 L Potassium 4.2 BUN 7 D Calcium 7.9 L Total Bilirubin 0.3 AST 14 L ALT 25 Alkaline Phosphatase 111 Total Protein 6.5 Urine Bilirubin Negative Urine Urobilinogen 0.2 Assessment Presumed liver abscess consider bacterial etiology ( from Diverticulitis ) or hematogenous from any source As he ate food from [facility] consider amebiasis Pulmonary nodule ??TB Plan Quantiferon gold Blood cultures x 2 Urine culture CRP ECHO Metronidazole Ceftriaxone 2 grs [address] ser[address] Perez for IR drainage with cultures c/s fungi and AFB and Amebic PCR CT chest formal evaluation of nodule Zach PEREA Problem List - Problems (1) Pulmonary nodule Code(s): R91.1 - SOLITARY PULMONARY NODULE
--- NOTE | 2017-07-19 10:18 | CON.GI ---
Consult Consult Specialty:: GI Referred by:: Service Reason for Consultation:: Liver abscess, abnormal CT colon - History of Present Illness History of Present Illness: Chart reviewed. A 52 yom, with no PMH presents to ER with 2 weeks of progressively worsening epigastric and LLQ pain. Non-radiating, spasmodic, associated with chills, nausea w/o vomiting, loss of appetite, few episodes of loose stools. No joint, skin symptoms. No dysphagia, odynophagia, GERD-like symptoms. No Jaundice, melena, hematochezia, hematemesis. . No recent antibiotics, travel, exposure to ill, camping. asymptomatic. Ate fish sent from [facility]. CT a/p w showed 5.5 cm liver lesion described as abscess, thickened sigmoid colon and diverticulosis of the left colon w/o signs of diverticulitis. A lung nodule was also noted. - History Source History Provided By: Patient, Medical Record Limitations to Obtaining History: Language Barrier - Alcohol/Substance Use Hx Alcohol Use: Yes - Smoking History Smoking history: Current every day smoker Have you smoked in the past 12 months: Yes Aproximately how many cigarettes per day: 10 Home Medications - Allergies Allergies/Adverse Reactions: Allergies Allergy/AdvReac Type Severity Reaction Status Date / Time No Known Allergies Allergy Verified 07/18/17 08:19 - Home Medications Home Medications: Ambulatory Orders NK [No Known Home Medication] 07/18/17 Family Disease History - Family Disease History Family History: Unremarkable Review of Systems Findings/Remarks: please refer to HPI and H&P Physical Exam-GI Vital Signs: Vital Signs Temperature 99.1 F 07/19/17 06:00 Pulse Rate 70 07/19/17 06:00 Respiratory Rate 20 07/19/17 06:00 Blood Pressure 106/62 07/19/17 06:00 O2 Sat by Pulse Oximetry (%) 95 07/18/17 20:38 Constitutional: Yes: No Distress, Calm Eyes: Yes: Conjunctiva Clear HENT: Yes: Atraumatic Neck: Yes: Supple Cardiovascular: Yes: Regular Rate and Rhythm Respiratory: Yes: Regular ...Auscultate: Yes: Normoactive Bowel Sounds ...Palpate: Yes: Soft, Other (LLQ tenderness). No: Guarding, Mass, Pulsatile Mass ...Percussion: No: Fluid Wave ...Rectal Exam: Yes: Deferred Neurological: Yes: Alert, Oriented Labs: CBC, BMP 07/19/17 06:30 07/19/17 06:30 INR, PTT INR 1.30 (0.82-1.09) H 07/19/17 07:45 CBCD WBC 11.9 K/mm3 (4.0-10.0) H 07/19/17 06:30 RBC 3.50 M/mm3 (4.00-5.60) L 07/19/17 06:30 Hgb 11.7 GM/dL (11.7-16.9) 07/19/17 06:30 Hct 33.7 % (35.4-49) L 07/19/17 06:30 MCV 96.3 fl (80-96) H 07/19/17 06:30 MCHC 34.8 g/dl (32.0-35.9) 07/19/17 06:30 RDW 13.1 % (11.9-15.9) 07/19/17 06:30 Plt Count 428 K/MM3 (134-434) 07/19/17 06:30 MPV 8.0 fl (7.5-11.1) 07/19/17 06:30 CMP Sodium 135 mmol/L (136-145) L 07/19/17 06:30 Potassium 4.2 mmol/L (3.5-5.1) 07/19/17 06:30 Chloride 100 mmol/L (98-107) 07/19/17 06:30 Carbon Dioxide 27 mmol/L (21-32) 07/19/17 06:30 Anion Gap 8 (8-16) 07/19/17 06:30 BUN 7 mg/dL (7-18) D 07/19/17 06:30 Creatinine 0.5 mg/dL (0.7-1.3) L 07/19/17 06:30 Creat Clearance w eGFR > 60 (>60) 07/19/17 06:30 Calcium 7.9 mg/dL (8.5-10.1) L 07/19/17 06:30 Total Bilirubin 0.3 mg/dL (0.2-1.0) 07/19/17 06:30 AST 14 U/L (15-37) L 07/19/17 06:30 ALT 25 U/L (12-78) 07/19/17 06:30 Alkaline Phosphatase 111 U/L (45-117) 07/19/17 06:30 Total Protein 6.5 g/dl (6.4-8.2) 07/19/17 06:30 Albumin 2.6 g/dl (3.4-5.0) L 07/19/17 06:30 Imaging - Results Cat Scan: Report Reviewed Problem List - Problems (1) Liver abscess Code(s): K75.0 - ABSCESS OF LIVER (2) Abnormal CT of liver Code(s): R93.2 - ABNORMAL FINDINGS ON DX IMAGING OF LIVER AND BILIARY TRACT (3) Abnormal CT scan, colon Code(s): R93.3 - ABNORMAL FINDINGS ON DX IMAGING OF PRT DIGESTIVE TRACT (4) Diverticulosis Code(s): K57.90 - DVRTCLOS OF INTEST, PART UNSP, W/O PERF OR ABSCESS W/O BLEED Assessment/Plan What looks like a 5.5 cm liver abscess in setting of diverticulosis (? disseminated to liver infection) and thickened sigmoid with localized tenderness. Infectious process, r/o neoplasm. Never had screening colonoscopy. IR to drain and obtain material for cultures, GS. ?amebic abscess Blood cultures Stool cultures, GS, OP if diarrhea Abx as per ID Will need colonoscopy to evaluate sigmoid thickening, r/o neoplasm. Pulmonary to evaluate the lung nodule, Quantiferon gold Discussed with the patient
--- NOTE | 2017-07-19 11:38 | PN ---
Physical Exam: SUBJECTIVE: Patient seen and examined. Pt still c/o abdominal pain this morning. Pt appears well, able to move around sans difficulty. No events overnight. OBJECTIVE: Vital Signs Period Temp Pulse Resp BP Sys/Carrillo Pulse Ox Last 24 Hr 99.1 F 70-71 20-20 98-106/56-62 95-99 GENERAL: The patient is awake, alert, and fully oriented, in no acute distress. HEAD: Normal with no signs of trauma. NECK: Trachea midline, supple. LUNGS: Breath sounds equal, clear to auscultation bilaterally, no wheezes, no crackles, no accessory muscle use. HEART: Regular rate and rhythm, S1, S2 without murmur, rub or gallop. ABDOMEN: LUQ and periumbilical regions tender to palpation. Soft, nondistended , no guarding, no rebound, no masses. EXTREMITIES: Warm, well-perfused, no edema. PSYCH: Normal mood, normal affect. SKIN: Warm, dry, normal turgor, no rashes or lesions noted Laboratory Results - last 24 hr 07/18/17 07/19/17 07/19/17 19:05 06:30 06:30 WBC 11.9 H RBC 3.50 L Hgb 11.7 Hct 33.7 L MCV 96.3 H MCH 33.5 MCHC 34.8 RDW 13.1 Plt Count 428 MPV 8.0 PT with INR INR PTT (Actin FS) Sodium 135 L Potassium 4.2 Chloride 100 Carbon Dioxide 27 Anion Gap 8 BUN 7 D Creatinine 0.5 L Creat Clearance w eGFR > 60 Random Glucose 91 Hemoglobin A1c % Calcium 7.9 L Phosphorus 3.3 Magnesium 2.3 Total Bilirubin 0.3 AST 14 L ALT 25 Alkaline Phosphatase 111 Total Protein 6.5 Albumin 2.6 L Stool Occult Blood Negative 07/19/17 07/19/17 06:30 07:45 WBC RBC Hgb Hct MCV MCH MCHC RDW Plt Count MPV PT with INR 14.70 H INR 1.30 H PTT (Actin FS) 32.1 Sodium Potassium Chloride Carbon Dioxide Anion Gap BUN Creatinine Creat Clearance w eGFR Random Glucose Hemoglobin A1c % 5.9 Calcium Phosphorus Magnesium Total Bilirubin AST ALT Alkaline Phosphatase Total Protein Albumin Stool Occult Blood Active Medications Generic Name Dose Route Start Last Admin Trade Name Freq PRN Reason Stop Dose Admin Sodium Chloride 1,000 mls @ 75 mls/hr 07/19/17 00:00 07/19/17 00:14 Normal Saline - IV 07/20/17 13:19 75 mls/hr ASDIR CLAY Administration CEFTRIAXONE 1 G/50 ML PREMIX 50 mls @ 100 mls/hr 07/18/17 20:15 07/18/17 22:28 Ceftriaxone 1 Gm-D5w Bag IVPB 100 mls/hr DAILY CLAY Administration Metronidazole 100 mls @ 100 mls/hr 07/18/17 20:15 07/19/17 02:32 Flagyl 500mg Premixed Ivpb - IVPB 100 mls/hr Q8H-IV CLAY Administration Morphine Sulfate 2 mg 07/18/17 17:00 Morphine Sulfate IVPUSH Q4H PRN PAIN ASSESSMENT/PLAN: 52yo M with no significant PMH presents c/o abdominal pain x 2 weeks, found to have liver cyst on CT, admitted to Med-Surg. 1) liver cyst - Ddx: abscess vs parasitic vs Ca - Previous CT abdomen 12/2016 did not demonstrate a cyst in the liver, suggesting this is a new finding. - IR (Dr. Dunlap) Consult - CT and US guided hepatic lobe abscess drainage catheter placed - ID (Dr. Serrano) recs appreciated: - f/u cultures of abscess drainage for fungi, AFB, and Amebic PCR - f/u CRP, amebic serology - f/u Quantiferon gold - f/u echo - Flagyl and Ceftriaxone - GI (Dr. Alvarez) recs appreciated: - colonoscopy to evaluate sigmoid thickening, r/o neoplasm - Morphine prn for pain D/Best, Dilaudid 0.5mg IVpush q4hr prn added for pain - leukocytosis noted, trending down - f/u blood cultures - FOBT (-) 2) devin CVA tenderness - urine culture (-) - pain may be referred from liver abscess 3) hyperglycemia - resolved - hgba1c wnl 4) FEN - Fluids: NS @ 75 ml/hr to start at midnight - Electrolytes: hyponatremia, continue to monitor - Nutrition: Regular diet 5) DVT prophylaxis - devin SCDs - Heparin 5,000U SQ TID Visit type - Emergency Visit Emergency Visit: Yes ED Registration Date: 07/18/17 Care time: The patient presented to the Emergency Department on the above date and was hospitalized for further evaluation of their emergent condition. - New Patient This patient is new to me today: No - Critical Care Critical Care patient: No
[2017-07-19] MEDS: CEFTRIAXONE 1 G/50 ML PREMIX 50 ML IVPB SCH (13:38)
--- NOTE | 2017-07-19 14:50 | EKG ---
Test Reason : Blood Pressure : / mmHG Vent. Rate : 078 BPM Atrial Rate : 078 BPM P-R Int : 138 ms QRS Dur : 092 ms QT Int : 364 ms P-R-T Axes : 049 045 024 degrees QTc Int : 414 ms NORMAL SINUS RHYTHM INCOMPLETE RIGHT BUNDLE BRANCH BLOCK BORDERLINE ECG NO PREVIOUS ECGS AVAILABLE Confirmed by DAVID REILLY MD ([id number]) on 07/19/2017 2:50:14 PM Referred By: Confirmed By:DAVID REILLY MD
[2017-07-19 16:32] LABS: HIV 1 & 2 AB NEGATIVE; HIV 1 AGp24 NEGATIVE
[2017-07-19] MEDS: HYDROmorphone HCL CARPU-JECT 1 MG/1 ML DISP.SYRIN IVPB PRN ×2 (17:57→21:43)
--- NOTE | 2017-07-19 19:30 | PN ---
Teaching Attending Note Name of Resident: Sarah Ybarra ATTENDING PHYSICIAN STATEMENT I saw and evaluated the patient. I reviewed the resident's note and discussed the case with the resident. I agree with the resident's findings and plan as documented. SUBJECTIVE: Patient is a 52yo male came in presented with diffuse abdominal pain. no fever or chills, no shortness of breath. OBJECTIVE: Vital Signs Temperature 98.7 F 07/19/17 14:00 Pulse Rate 76 07/19/17 11:52 Respiratory Rate 17 07/19/17 11:52 Blood Pressure 100/62 07/19/17 11:52 O2 Sat by Pulse Oximetry (%) 98 07/19/17 11:52 CBCD WBC 11.9 K/mm3 (4.0-10.0) H 07/19/17 06:30 RBC 3.50 M/mm3 (4.00-5.60) L 07/19/17 06:30 Hgb 11.7 GM/dL (11.7-16.9) 07/19/17 06:30 Hct 33.7 % (35.4-49) L 07/19/17 06:30 MCV 96.3 fl (80-96) H 07/19/17 06:30 MCHC 34.8 g/dl (32.0-35.9) 07/19/17 06:30 RDW 13.1 % (11.9-15.9) 07/19/17 06:30 Plt Count 428 K/MM3 (134-434) 07/19/17 06:30 MPV 8.0 fl (7.5-11.1) 07/19/17 06:30 CMP Sodium 135 mmol/L (136-145) L 07/19/17 06:30 Potassium 4.2 mmol/L (3.5-5.1) 07/19/17 06:30 Chloride 100 mmol/L (98-107) 07/19/17 06:30 Carbon Dioxide 27 mmol/L (21-32) 07/19/17 06:30 Anion Gap 8 (8-16) 07/19/17 06:30 BUN 7 mg/dL (7-18) D 07/19/17 06:30 Creatinine 0.5 mg/dL (0.7-1.3) L 07/19/17 06:30 Creat Clearance w eGFR > 60 (>60) 07/19/17 06:30 Random Glucose 91 mg/dL (74-106) 07/19/17 06:30 Calcium 7.9 mg/dL (8.5-10.1) L 07/19/17 06:30 Total Bilirubin 0.3 mg/dL (0.2-1.0) 07/19/17 06:30 AST 14 U/L (15-37) L 07/19/17 06:30 ALT 25 U/L (12-78) 07/19/17 06:30 Alkaline Phosphatase 111 U/L (45-117) 07/19/17 06:30 Total Protein 6.5 g/dl (6.4-8.2) 07/19/17 06:30 Albumin 2.6 g/dl (3.4-5.0) L 07/19/17 06:30 Current Medications Generic Name Dose Route Start Last Admin Trade Name Freq PRN Reason Stop Dose Admin Heparin Sodium (Porcine) 5,000 unit 07/19/17 22:00 Heparin - SQ TID CLAY Hydromorphone HCl 0.5 mg 07/19/17 16:28 07/19/17 17:57 Dilaudid Injection - IVPB 0.5 mg Q4H PRN Administration PAIN Sodium Chloride 1,000 mls @ 75 mls/hr 07/19/17 00:00 07/19/17 00:14 Normal Saline - IV 07/20/17 13:19 75 mls/hr ASDIR CLAY Administration CEFTRIAXONE 1 G/50 ML PREMIX 50 mls @ 100 mls/hr 07/18/17 20:15 07/19/17 13:38 Ceftriaxone 1 Gm-D5w Bag IVPB 100 mls/hr DAILY CLAY Administration Metronidazole 100 mls @ 100 mls/hr 07/18/17 20:15 07/19/17 17:56 Flagyl 500mg Premixed Ivpb - IVPB 100 mls/hr Q8H-IV CLAY Administration Home Medications Medication Instructions Recorded NK [No Known Home Medication] 07/18/17 PE: diffuse abdominal pain L>R rest of PE per resident's note 07/18/17 EKG -> NSR, incomplete RBBB. ASSESSMENT AND PLAN: 52yo M with no significant PMH presents c/o abdominal pain x 2 weeks, found to have liver cyst on CT, admitted to Med-Surg. # Acute liver cyst : abscess vs parasitic .CT abdomen 12/2016 did not demonstrate a cyst in the liver, suggesting this is a new finding. 07/18/17 CT ab/pel -> 5.5cm hypodense cyst in Left lateral margin of Left hepatic lobe with associated fat stranding suspicious for abscess. # Acute CVA tenderness bl: f/u urine culture # Acute hyperglycemia f/u hgbA1c DVT prophylaxis: SCDs
[2017-07-19] MEDS: HEPARIN NA (PORCINE) 5,000 UNITS/ML 1ML VIAL SQ SCH (21:45)
[2017-07-20] MEDS: SODIUM CHLORIDE 1,000 ML IV SCH (00:49)
[2017-07-20] MEDS: METRONIDAZOLE 500 MG PREMIXED 100 ML IVPB SCH ×3 (01:46→18:32)
[2017-07-20] MEDS: HEPARIN NA (PORCINE) 5,000 UNITS/ML 1ML VIAL SQ SCH ×3 (05:18→21:35)
[2017-07-20] MEDS ORDERED: PNEUMOC 13-VAL CONJ-DIP CRM/PF 0.5 ML DISP.SYRIN IM ONE (06:50)
[2017-07-20 07:57] LABS: BASOPHIL 0.5 % (0-2.0); EOSINOPHIL 1.7 % (0-4.5); MCH 33.2 pg (25.7-33.7); MCHC 34.6 g/dl (32.0-35.9); MEAN PLT VOLUME 7.8 fl (7.5-11.1); PLATELET COUNT 398 K/MM3 (134-434); RDW 13.2 % (11.9-15.9); WHITE BLOOD COUNT 7.8 K/mm3 (4.0-10.0)
[2017-07-20] MEDS ORDERED: PNEUMOCOCCAL 23 VACCINE 0.5 ML VIAL IM ONE (08:15)
[2017-07-20 08:34] LABS: ALBUMIN 2.5 g/dl (3.4-5.0); ALK PHOS 105 U/L (45-117); ANION GAP 7 (8-16); BILIRUBIN,TOTAL 0.3 mg/dL (0.2-1.0); CALCIUM 7.8 mg/dL (8.5-10.1); CO2 27 mmol/L (21-32); CREATININE 0.5 mg/dL (0.7-1.3); GLUCOSE,RANDOM 115 mg/dL (74-106); SGOT/AST 12 U/L (15-37); SGPT/ALT 21 U/L (12-78); TOT PROT 6.5 g/dl (6.4-8.2)
[2017-07-20] MEDS: CEFTRIAXONE 1 G/50 ML PREMIX 50 ML IVPB SCH (10:03)
--- NOTE | 2017-07-20 10:16 | PN ---
Physical Exam: SUBJECTIVE: Patient seen and examined. Pt reports some tenderness in LUQ and at drain site. Pt feels well otherwise. No events overnight. OBJECTIVE: Vital Signs Period Temp Pulse Resp BP Sys/Carrillo Pulse Ox Last 24 Hr 98.1 F-98.7 F 61-76 17-20 98-130/56-78 98-99 GENERAL: The patient is awake, alert, and fully oriented, in no acute distress. HEAD: Normal with no signs of trauma. EYES: Extraocular movements intact, sclera anicteric, conjunctiva clear. No ptosis. ENT: Moist mucous membranes. NECK: Trachea midline, full range of motion, supple. LUNGS: Breath sounds equal, clear to auscultation bilaterally, no wheezes, no crackles, no accessory muscle use. HEART: Regular rate and rhythm, S1, S2 without murmur, rub or gallop. ABDOMEN: LUQ tender to palpation. OSMANI drain observed on Left-sided mid-axillary line, draining purulent fluid. Ab soft, nondistended, no guarding, no rebound. EXTREMITIES: Warm, well-perfused, no edema. PSYCH: Normal mood, normal affect. SKIN: Warm, dry, normal turgor, no rashes or lesions noted Laboratory Results - last 24 hr 07/19/17 07/19/17 07/20/17 14:40 14:40 06:10 WBC 7.8 D RBC 3.58 L Hgb 11.9 Hct 34.3 L MCV 96.0 MCH 33.2 MCHC 34.6 RDW 13.2 Plt Count 398 MPV 7.8 Neutrophils % 68.0 Lymphocytes % 23.4 D Monocytes % 6.4 Eosinophils % 1.7 D Basophils % 0.5 Sodium Potassium Chloride Carbon Dioxide Anion Gap BUN Creatinine Creat Clearance w eGFR Random Glucose Calcium Total Bilirubin AST ALT Alkaline Phosphatase C-Reactive Protein 15.4 H Total Protein Albumin HIV 1&2 Antibody Screen Negative HIV P24 Antigen Negative 07/20/17 06:10 WBC RBC Hgb Hct MCV MCH MCHC RDW Plt Count MPV Neutrophils % Lymphocytes % Monocytes % Eosinophils % Basophils % Sodium 137 Potassium 3.9 Chloride 103 Carbon Dioxide 27 Anion Gap 7 L BUN 7 Creatinine 0.5 L Creat Clearance w eGFR > 60 Random Glucose 115 H D Calcium 7.8 L Total Bilirubin 0.3 AST 12 L ALT 21 Alkaline Phosphatase 105 C-Reactive Protein Total Protein 6.5 Albumin 2.5 L HIV 1&2 Antibody Screen HIV P24 Antigen Active Medications Generic Name Dose Route Start Last Admin Trade Name Freq PRN Reason Stop Dose Admin Heparin Sodium (Porcine) 5,000 unit 07/19/17 22:00 07/20/17 05:18 Heparin - SQ 5,000 unit TID CLAY Administration Hydromorphone HCl 0.5 mg 07/19/17 16:28 07/19/17 21:43 Dilaudid Injection - IVPB 0.5 mg Q4H PRN Administration PAIN Sodium Chloride 1,000 mls @ 75 mls/hr 07/19/17 00:00 07/20/17 00:49 Normal Saline - IV 07/20/17 13:19 Not Given ASDIR CLAY CEFTRIAXONE 1 G/50 ML PREMIX 50 mls @ 100 mls/hr 07/18/17 20:15 07/19/17 13:38 Ceftriaxone 1 Gm-D5w Bag IVPB 100 mls/hr DAILY CLAY Administration Metronidazole 100 mls @ 100 mls/hr 07/18/17 20:15 07/20/17 01:46 Flagyl 500mg Premixed Ivpb - IVPB 100 mls/hr Q8H-IV CLAY Administration IMAGIN07/20/17 Echo -> normal systolic function ASSESSMENT/PLAN: 52yo M with no significant PMH presents c/o abdominal pain x 2 weeks, found to have liver cyst on CT, admitted to Med-Surg. 1) liver cyst - Ddx: abscess vs parasitic vs Ca - OSMANI drain in place draining purulent fluid - ID (Dr. Serrano) recs appreciated: - CRP elevated - f/u cultures of abscess drainage for fungi, AFB, and Amebic PCR - f/u amebic serology - f/u Quantiferon gold - Day 3 of IV antibiotics, both Flagyl and Ceftriaxone - GI (Dr. Alvarez) recs appreciated: - colonoscopy to evaluate sigmoid thickening, r/o neoplasm - continue Dilaudid 0.5mg IVpush q4hr prn for pain - leukocytosis resolved - blood cultures (-) x 24 hrs 2) pulmonary nodule - f/u Chest CT without contrast as an outpatient 3) FEN - Fluids: NS @ 75 ml/hr to start at midnight - Electrolytes: hyponatremia, continue to monitor - Nutrition: Regular diet 4) DVT prophylaxis - Heparin 5,000U SQ TID - Incentive spirometer Visit type - Emergency Visit Emergency Visit: Yes ED Registration Date: 07/18/17 Care time: The patient presented to the Emergency Department on the above date and was hospitalized for further evaluation of their emergent condition. - New Patient This patient is new to me today: No - Critical Care Critical Care patient: No
--- NOTE | 2017-07-20 10:54 | PN ---
Progress Note, Physician History of Present Illness: s/p abscess drain with cath in place (5.5 cm lesion). Comfortable. No events. - Current Medication List Current Medications: Active Medications Heparin Sodium (Porcine) (Heparin -) 5,000 unit SQ TID CLAY Last Admin: 07/20/17 05:18 Dose: 5,000 unit Hydromorphone HCl (Dilaudid Injection -) 0.5 mg IVPB Q4H PRN PRN Reason: PAIN Last Admin: 07/19/17 21:43 Dose: 0.5 mg Sodium Chloride (Normal Saline -) 1,000 mls @ 75 mls/hr IV ASDIR CLAY Stop: 07/20/17 13:19 Last Admin: 07/20/17 00:49 Dose: Not Given CEFTRIAXONE 1 G/50 ML PREMIX (Ceftriaxone 1 Gm-D5w Bag) 50 mls @ 100 mls/hr IVPB DAILY CLAY Last Admin: 07/20/17 10:03 Dose: 100 mls/hr Metronidazole (Flagyl 500mg Premixed Ivpb -) 100 mls @ 100 mls/hr IVPB Q8H-IV CLAY Last Admin: 07/20/17 10:02 Dose: 100 mls/hr - Objective Vital Signs: Vital Signs Temperature 98.1 F 07/20/17 06:07 Pulse Rate 61 07/20/17 06:07 Respiratory Rate 20 07/20/17 06:07 Blood Pressure 101/60 07/20/17 06:07 O2 Sat by Pulse Oximetry (%) 98 07/19/17 11:52 Constitutional: Yes: No Distress, Calm Eyes: Yes: Conjunctiva Clear Cardiovascular: Yes: Regular Rate and Rhythm Respiratory: Yes: Regular Gastrointestinal: Yes: Normal Bowel Sounds, Soft, Tenderness (at cath). No: Melena, Rectal Bleeding, Vomiting Labs: CBC, BMP 07/20/17 06:10 07/20/17 06:10 INR, PTT INR 1.30 (0.82-1.09) H 07/19/17 07:45 CBCD WBC 7.8 K/mm3 (4.0-10.0) D 07/20/17 06:10 RBC 3.58 M/mm3 (4.00-5.60) L 07/20/17 06:10 Hgb 11.9 GM/dL (11.7-16.9) 07/20/17 06:10 Hct 34.3 % (35.4-49) L 07/20/17 06:10 MCV 96.0 fl (80-96) 07/20/17 06:10 MCHC 34.6 g/dl (32.0-35.9) 07/20/17 06:10 RDW 13.2 % (11.9-15.9) 07/20/17 06:10 Plt Count 398 K/MM3 (134-434) 07/20/17 06:10 MPV 7.8 fl (7.5-11.1) 07/20/17 06:10 CMP Sodium 137 mmol/L (136-145) 07/20/17 06:10 Potassium 3.9 mmol/L (3.5-5.1) 07/20/17 06:10 Chloride 103 mmol/L (98-107) 07/20/17 06:10 Carbon Dioxide 27 mmol/L (21-32) 07/20/17 06:10 Anion Gap 7 (8-16) L 07/20/17 06:10 BUN 7 mg/dL (7-18) 07/20/17 06:10 Creatinine 0.5 mg/dL (0.7-1.3) L 07/20/17 06:10 Creat Clearance w eGFR > 60 (>60) 07/20/17 06:10 Calcium 7.8 mg/dL (8.5-10.1) L 07/20/17 06:10 Total Bilirubin 0.3 mg/dL (0.2-1.0) 07/20/17 06:10 AST 12 U/L (15-37) L 07/20/17 06:10 ALT 21 U/L (12-78) 07/20/17 06:10 Alkaline Phosphatase 105 U/L (45-117) 07/20/17 06:10 Total Protein 6.5 g/dl (6.4-8.2) 07/20/17 06:10 Albumin 2.5 g/dl (3.4-5.0) L 07/20/17 06:10 - ....Imaging Other: Report Reviewed (IR) Problem List - Problems (1) Liver abscess Code(s): K75.0 - ABSCESS OF LIVER (2) Abnormal CT of liver Code(s): R93.2 - ABNORMAL FINDINGS ON DX IMAGING OF LIVER AND BILIARY TRACT (3) Abnormal CT scan, colon Code(s): R93.3 - ABNORMAL FINDINGS ON DX IMAGING OF PRT DIGESTIVE TRACT (4) Diverticulosis Code(s): K57.90 - DVRTCLOS OF INTEST, PART UNSP, W/O PERF OR ABSCESS W/O BLEED Assessment/Plan drained 5.5 cm liver abscess in setting of diverticulosis (?disseminated to liver infection) and thickened sigmoid with localized tenderness. Infectious process, r/o neoplasm. Never had screening colonoscopy. abscess material for cultures, GS. ?amebic abscess Blood cultures Stool cultures, GS, OP if diarrhea Abx as per ID Colonoscopy to evaluate sigmoid thickening, r/o neoplasm this admission Pulmonary to evaluate the lung nodule, Quantiferon gold Discussed with the patient
--- NOTE | 2017-07-20 12:54 | PN ---
Progress Note, Physician History of Present Illness: Awake, alert S/P percutaneous drainage, liver abscess C/O mild bilateral upper abdo pain No N/V No F/C Cultures pending WBC improved WNL - Current Medication List Current Medications: Active Medications Heparin Sodium (Porcine) (Heparin -) 5,000 unit SQ TID CLAY Last Admin: 07/20/17 05:18 Dose: 5,000 unit Hydromorphone HCl (Dilaudid Injection -) 0.5 mg IVPB Q4H PRN PRN Reason: PAIN Last Admin: 07/19/17 21:43 Dose: 0.5 mg Sodium Chloride (Normal Saline -) 1,000 mls @ 75 mls/hr IV ASDIR CLAY Stop: 07/20/17 13:19 Last Admin: 07/20/17 00:49 Dose: Not Given CEFTRIAXONE 1 G/50 ML PREMIX (Ceftriaxone 1 Gm-D5w Bag) 50 mls @ 100 mls/hr IVPB DAILY CLAY Last Admin: 07/20/17 10:03 Dose: 100 mls/hr Metronidazole (Flagyl 500mg Premixed Ivpb -) 100 mls @ 100 mls/hr IVPB Q8H-IV CLAY Last Admin: 07/20/17 10:02 Dose: 100 mls/hr - Objective Vital Signs: Vital Signs Temperature 98.1 F 07/20/17 06:07 Pulse Rate 61 07/20/17 06:07 Respiratory Rate 20 07/20/17 06:07 Blood Pressure 101/60 07/20/17 06:07 O2 Sat by Pulse Oximetry (%) 98 07/19/17 11:52 Eyes: Yes: Conjunctiva Clear Cardiovascular: Yes: Regular Rate and Rhythm, S1, S2 Respiratory: Yes: CTA Bilaterally Gastrointestinal: Yes: Normal Bowel Sounds, Soft, Tenderness (mild upper abdo tenderness Drain in place LUQ) Edema: No Labs: CBC, BMP 07/20/17 06:10 07/20/17 06:10 INR, PTT INR 1.30 (0.82-1.09) H 07/19/17 07:45 Assessment/Plan S/P percutaneous drainage, liver abscess Await c/s Continue ceftriaxone/ flagyl
--- NOTE | 2017-07-20 15:47 | PN ---
Teaching Attending Note Name of Resident: Sarah Ybarra ATTENDING PHYSICIAN STATEMENT I saw and evaluated the patient. I reviewed the resident's note and discussed the case with the resident. I agree with the resident's findings and plan as documented. SUBJECTIVE: Patient is comfortable with no acute distress. No headache, no nausea or vomiting, s/p OSMANI drain placement. OBJECTIVE: Vital Signs Temperature 98.0 F 07/20/17 15:15 Pulse Rate 60 07/20/17 15:15 Respiratory Rate 20 07/20/17 15:15 Blood Pressure 103/60 07/20/17 15:15 O2 Sat by Pulse Oximetry (%) 98 07/20/17 09:00 CBCD WBC 7.8 K/mm3 (4.0-10.0) D 07/20/17 06:10 RBC 3.58 M/mm3 (4.00-5.60) L 07/20/17 06:10 Hgb 11.9 GM/dL (11.7-16.9) 07/20/17 06:10 Hct 34.3 % (35.4-49) L 07/20/17 06:10 MCV 96.0 fl (80-96) 07/20/17 06:10 MCHC 34.6 g/dl (32.0-35.9) 07/20/17 06:10 RDW 13.2 % (11.9-15.9) 07/20/17 06:10 Plt Count 398 K/MM3 (134-434) 07/20/17 06:10 MPV 7.8 fl (7.5-11.1) 07/20/17 06:10 CMP Sodium 137 mmol/L (136-145) 07/20/17 06:10 Potassium 3.9 mmol/L (3.5-5.1) 07/20/17 06:10 Chloride 103 mmol/L (98-107) 07/20/17 06:10 Carbon Dioxide 27 mmol/L (21-32) 07/20/17 06:10 Anion Gap 7 (8-16) L 07/20/17 06:10 BUN 7 mg/dL (7-18) 07/20/17 06:10 Creatinine 0.5 mg/dL (0.7-1.3) L 07/20/17 06:10 Creat Clearance w eGFR > 60 (>60) 07/20/17 06:10 Random Glucose 115 mg/dL (74-106) H D 07/20/17 06:10 Calcium 7.8 mg/dL (8.5-10.1) L 07/20/17 06:10 Total Bilirubin 0.3 mg/dL (0.2-1.0) 07/20/17 06:10 AST 12 U/L (15-37) L 07/20/17 06:10 ALT 21 U/L (12-78) 07/20/17 06:10 Alkaline Phosphatase 105 U/L (45-117) 07/20/17 06:10 Total Protein 6.5 g/dl (6.4-8.2) 07/20/17 06:10 Albumin 2.5 g/dl (3.4-5.0) L 07/20/17 06:10 Current Medications Generic Name Dose Route Start Last Admin Trade Name Freq PRN Reason Stop Dose Admin Heparin Sodium (Porcine) 5,000 unit 07/19/17 22:00 07/20/17 14:28 Heparin - SQ 5,000 unit TID CLAY Administration Hydromorphone HCl 0.5 mg 07/19/17 16:28 07/19/17 21:43 Dilaudid Injection - IVPB 0.5 mg Q4H PRN Administration PAIN CEFTRIAXONE 1 G/50 ML PREMIX 50 mls @ 100 mls/hr 07/18/17 20:15 07/20/17 10:03 Ceftriaxone 1 Gm-D5w Bag IVPB 100 mls/hr DAILY CLAY Administration Metronidazole 100 mls @ 100 mls/hr 07/18/17 20:15 07/20/17 10:02 Flagyl 500mg Premixed Ivpb - IVPB 100 mls/hr Q8H-IV CLAY Administration PE: diffuse abdominal pain L>R, positive for OSMANI drainage creamy color rest of PE per resident's note 07/18/17 EKG -> NSR, incomplete RBBB. ASSESSMENT AND PLAN: 52yo M with no significant PMH presents c/o abdominal pain x 2 weeks, found to have liver cyst on CT, admitted to Med-Surg. # POD #1 s/p Acute liver cyst abscess drainage by IR .CT abdomen 12/2016 did not demonstrate a cyst in the liver, suggesting this is a new finding. 07/18/17 CT ab/pel -> 5.5cm hypodense cyst in Left lateral margin of Left hepatic lobe with associated fat stranding suspicious for abscess. ON IV antibiotic rocephin/flagyl continue , ID on the case . # Acute CVA tenderness bl: f/u urine culture # Acute hyperglycemia f/u hgbA1c DVT prophylaxis: SCDs
[2017-07-20] MEDS: HYDROmorphone HCL CARPU-JECT 1 MG/1 ML DISP.SYRIN IVPB PRN (19:12)
[2017-07-21] MEDS: METRONIDAZOLE 500 MG PREMIXED 100 ML IVPB SCH ×3 (01:14→17:02)
[2017-07-21] MEDS: HEPARIN NA (PORCINE) 5,000 UNITS/ML 1ML VIAL SQ SCH ×3 (05:11→21:01)
--- NOTE | 2017-07-21 07:11 | PN ---
Physical Exam: SUBJECTIVE: Patient seen and examined. Pain controlled with Dilaudid. OSMANI drain with serous drainage, only 18ml per nurse. Pt going for colonoscopy tomorrow. No overnight events. OBJECTIVE: Vital Signs Period Temp Pulse Resp BP Sys/Carrillo Pulse Ox Last 24 Hr 97.8 F-98.7 F 58-65 18-20 103-111/60-69 98 GENERAL: The patient is awake, alert, and fully oriented, in no acute distress. HEAD: Normal with no signs of trauma. EYES: Extraocular movements intact, sclera anicteric, conjunctiva clear. No ptosis. ENT: Moist mucous membranes. NECK: Trachea midline, supple. LUNGS: Breath sounds equal, clear to auscultation bilaterally, no wheezes, no crackles, no accessory muscle use. HEART: Regular rate and rhythm, S1, S2 without murmur, rub or gallop. ABDOMEN: Soft, nontender, nondistended. OSMANI drain observed on Left-side mid- axillary line. EXTREMITIES: Warm, well-perfused, no edema. NEUROLOGICAL: Cranial nerves II through XII grossly intact. Normal speech, gait steady. PSYCH: Normal mood, normal affect. SKIN: Warm, dry, normal turgor, no rashes or lesions noted Laboratory Results - last 24 hr 07/19/17 14:50 TB Test (QFT) Positive H Active Medications Generic Name Dose Route Start Last Admin Trade Name Freq PRN Reason Stop Dose Admin Heparin Sodium (Porcine) 5,000 unit 07/19/17 22:00 07/21/17 05:11 Heparin - SQ 5,000 unit TID CLAY Administration Hydromorphone HCl 0.5 mg 07/19/17 16:28 07/20/17 19:12 Dilaudid Injection - IVPB 0.5 mg Q4H PRN Administration PAIN CEFTRIAXONE 1 G/50 ML PREMIX 50 mls @ 100 mls/hr 07/18/17 20:15 07/20/17 10:03 Ceftriaxone 1 Gm-D5w Bag IVPB 100 mls/hr DAILY CLAY Administration Metronidazole 100 mls @ 100 mls/hr 07/18/17 20:15 07/21/17 01:14 Flagyl 500mg Premixed Ivpb - IVPB 100 mls/hr Q8H-IV CLAY Administration ASSESSMENT/PLAN: 52yo M with no significant PMH presents c/o abdominal pain x 2 weeks, found to have liver cyst on CT, admitted to Med-Surg. 1) liver cyst s/p drainage by IR 07/19/17 - Ddx: abscess vs parasitic vs Ca - OSMANI drain in place draining serous fluid - ID (Dr. Serrano) recs appreciated: - Quantiferon gold (+) -> f/u CXR - HIV (-) - Day 4 of IV antibiotics, both Flagyl and Ceftriaxone - f/u cultures of abscess drainage for fungi, AFB, and Amebic PCR - f/u amebic serology - continue Dilaudid 0.5mg IVpush q4hr prn for pain - blood cultures (-) x 48 hrs 2) sigmoid thickening on CT - followed by GI (Dr. Alvarez) - f/u colonoscopy tomorrow, r/o neoplasm - npo after midnight - golytely at 6pm 3) pulmonary nodule - f/u Chest CT without contrast as an outpatient 4) FEN - Fluids: encourage po - Electrolytes: wnl, continue to monitor - Nutrition: clear liquid diet in preparation for colonoscopy tomorrow, npo after midnight 5) DVT prophylaxis - Heparin 5,000U SQ TID - Incentive spirometer Visit type - Emergency Visit Emergency Visit: Yes ED Registration Date: 07/18/17 Care time: The patient presented to the Emergency Department on the above date and was hospitalized for further evaluation of their emergent condition. - New Patient This patient is new to me today: No - Critical Care Critical Care patient: No
--- NOTE | 2017-07-21 08:03 | PN ---
Progress Note, Physician History of Present Illness: s/p abscess drain with cath in place (5.5 cm lesion). Comfortable. No events. No pain. loose stools. Family at bedside, questions answered to their satisfaction. - Current Medication List Current Medications: Active Medications Heparin Sodium (Porcine) (Heparin -) 5,000 unit SQ TID CLAY Last Admin: 07/21/17 05:11 Dose: 5,000 unit Hydromorphone HCl (Dilaudid Injection -) 0.5 mg IVPB Q4H PRN PRN Reason: PAIN Last Admin: 07/20/17 19:12 Dose: 0.5 mg CEFTRIAXONE 1 G/50 ML PREMIX (Ceftriaxone 1 Gm-D5w Bag) 50 mls @ 100 mls/hr IVPB DAILY CLAY Last Admin: 07/20/17 10:03 Dose: 100 mls/hr Metronidazole (Flagyl 500mg Premixed Ivpb -) 100 mls @ 100 mls/hr IVPB Q8H-IV CLAY Last Admin: 07/21/17 01:14 Dose: 100 mls/hr - Objective Vital Signs: Vital Signs Temperature 97.9 F 07/21/17 05:03 Pulse Rate 60 07/21/17 05:03 Respiratory Rate 20 07/21/17 05:03 Blood Pressure 105/60 07/21/17 05:03 O2 Sat by Pulse Oximetry (%) 98 07/20/17 09:00 Constitutional: Yes: No Distress, Calm Eyes: Yes: Conjunctiva Clear HENT: Yes: Atraumatic Neck: Yes: Supple Respiratory: Yes: Regular Gastrointestinal: Yes: Normal Bowel Sounds, Soft, Tenderness (@ catheter.) Wound/Incision: Yes: Clean/Dry Neurological: Yes: Alert, Oriented Labs: CBC, BMP 07/20/17 06:10 07/20/17 06:10 INR, PTT INR 1.30 (0.82-1.09) H 07/19/17 07:45 CBCD WBC 7.8 K/mm3 (4.0-10.0) D 07/20/17 06:10 RBC 3.58 M/mm3 (4.00-5.60) L 07/20/17 06:10 Hgb 11.9 GM/dL (11.7-16.9) 07/20/17 06:10 Hct 34.3 % (35.4-49) L 07/20/17 06:10 MCV 96.0 fl (80-96) 07/20/17 06:10 MCHC 34.6 g/dl (32.0-35.9) 07/20/17 06:10 RDW 13.2 % (11.9-15.9) 07/20/17 06:10 Plt Count 398 K/MM3 (134-434) 07/20/17 06:10 MPV 7.8 fl (7.5-11.1) 07/20/17 06:10 CMP Sodium 137 mmol/L (136-145) 07/20/17 06:10 Potassium 3.9 mmol/L (3.5-5.1) 07/20/17 06:10 Chloride 103 mmol/L (98-107) 07/20/17 06:10 Carbon Dioxide 27 mmol/L (21-32) 07/20/17 06:10 Anion Gap 7 (8-16) L 07/20/17 06:10 BUN 7 mg/dL (7-18) 07/20/17 06:10 Creatinine 0.5 mg/dL (0.7-1.3) L 07/20/17 06:10 Creat Clearance w eGFR > 60 (>60) 07/20/17 06:10 Calcium 7.8 mg/dL (8.5-10.1) L 07/20/17 06:10 Total Bilirubin 0.3 mg/dL (0.2-1.0) 07/20/17 06:10 AST 12 U/L (15-37) L 07/20/17 06:10 ALT 21 U/L (12-78) 07/20/17 06:10 Alkaline Phosphatase 105 U/L (45-117) 07/20/17 06:10 Total Protein 6.5 g/dl (6.4-8.2) 07/20/17 06:10 Albumin 2.5 g/dl (3.4-5.0) L 07/20/17 06:10 CBCD WBC 7.8 K/mm3 (4.0-10.0) D 07/20/17 06:10 RBC 3.58 M/mm3 (4.00-5.60) L 07/20/17 06:10 Hgb 11.9 GM/dL (11.7-16.9) 07/20/17 06:10 Hct 34.3 % (35.4-49) L 07/20/17 06:10 MCV 96.0 fl (80-96) 07/20/17 06:10 MCHC 34.6 g/dl (32.0-35.9) 07/20/17 06:10 RDW 13.2 % (11.9-15.9) 07/20/17 06:10 Plt Count 398 K/MM3 (134-434) 07/20/17 06:10 MPV 7.8 fl (7.5-11.1) 07/20/17 06:10 CMP Sodium 137 mmol/L (136-145) 07/20/17 06:10 Potassium 3.9 mmol/L (3.5-5.1) 07/20/17 06:10 Chloride 103 mmol/L (98-107) 07/20/17 06:10 Carbon Dioxide 27 mmol/L (21-32) 07/20/17 06:10 Anion Gap 7 (8-16) L 07/20/17 06:10 BUN 7 mg/dL (7-18) 07/20/17 06:10 Creatinine 0.5 mg/dL (0.7-1.3) L 07/20/17 06:10 Creat Clearance w eGFR > 60 (>60) 07/20/17 06:10 Calcium 7.8 mg/dL (8.5-10.1) L 07/20/17 06:10 Total Bilirubin 0.3 mg/dL (0.2-1.0) 07/20/17 06:10 AST 12 U/L (15-37) L 07/20/17 06:10 ALT 21 U/L (12-78) 07/20/17 06:10 Alkaline Phosphatase 105 U/L (45-117) 07/20/17 06:10 Total Protein 6.5 g/dl (6.4-8.2) 07/20/17 06:10 Albumin 2.5 g/dl (3.4-5.0) L 07/20/17 06:10 Microbiology 07/19/17 13:00 Abscess Gram Stain - Final 07/19/17 13:00 Abscess Body Fluid Culture - Preliminary NO AEROBIC GROWTH, 24 HRS 07/19/17 13:00 Abscess Anaerobic Culture - Final NO ANAEROBES WERE ISOLATED 07/18/17 15:04 Blood - Peripheral Venous Blood Culture - Preliminary NO GROWTH OBTAINED AFTER 48 HOURS, INCUBATION TO CONTINUE FOR 3 DAYS. 07/18/17 14:45 Blood - Peripheral Venous Blood Culture - Preliminary NO GROWTH OBTAINED AFTER 48 HOURS, INCUBATION TO CONTINUE FOR 3 DAYS. 07/18/17 09:15 Urine - Urine Clean Catch Urine Culture - Final NO GROWTH OBTAINED Problem List - Problems (1) Liver abscess Code(s): K75.0 - ABSCESS OF LIVER (2) Abnormal CT of liver Code(s): R93.2 - ABNORMAL FINDINGS ON DX IMAGING OF LIVER AND BILIARY TRACT (3) Abnormal CT scan, colon Code(s): R93.3 - ABNORMAL FINDINGS ON DX IMAGING OF PRT DIGESTIVE TRACT (4) Diverticulosis Code(s): K57.90 - DVRTCLOS OF INTEST, PART UNSP, W/O PERF OR ABSCESS W/O BLEED Assessment/Plan drained 5.5 cm liver abscess in setting of diverticulosis (?disseminated to liver infection) and thickened sigmoid with localized tenderness. Infectious process, r/o neoplasm. Never had screening colonoscopy. abscess material for cultures, GS. ?amebic abscess Stool cultures, GS, OP if diarrhea Abx as per ID Colonoscopy to evaluate sigmoid thickening, r/o neoplasm this admission Pulmonary to evaluate the lung nodule, Quantiferon gold Discussed with the patient, family at bedside
[2017-07-21 10:12] LABS: QFT TB AG - NIL VALUE 0.96 IU/mL (.); QUANT MITOGEN VALUE >10.00 IU/mL (.); QUANT NIL VALUE 0.17 IU/mL (.); QUANT TB AG VALUE 1.13 IU/mL (.)
[2017-07-21] MEDS: CEFTRIAXONE 1 G/50 ML PREMIX 50 ML IVPB SCH (10:16)
--- NOTE | 2017-07-21 10:19 | PN ---
Progress Note (short form) - Note Progress Note: resting comfortably Vital Signs Period Temp Pulse Resp BP Sys/Carrillo Pulse Ox Last 24 Hr 97.8 F-98.7 F 58-65 18-20 103-114/59-69 cor-rrr lungs clear abd soft,nt +OSMANI drain with serous drainage ext no edema CBC, BMP 07/20/17 06:10 07/20/17 06:10 Microbiology 07/19/17 13:00 Abscess Gram Stain - Final 07/19/17 13:00 Abscess Body Fluid Culture - Preliminary NO AEROBIC GROWTH, 24 HRS 07/19/17 13:00 Abscess Anaerobic Culture - Final NO ANAEROBES WERE ISOLATED 07/18/17 15:04 Blood - Peripheral Venous Blood Culture - Preliminary NO GROWTH OBTAINED AFTER 48 HOURS, INCUBATION TO CONTINUE FOR 3 DAYS. 07/18/17 14:45 Blood - Peripheral Venous Blood Culture - Preliminary NO GROWTH OBTAINED AFTER 48 HOURS, INCUBATION TO CONTINUE FOR 3 DAYS. 07/18/17 09:15 Urine - Urine Clean Catch Urine Culture - Final NO GROWTH OBTAINED a/p s/p IR drainage- continue rocephin and flagyl, f/u amebic serology stable 5 mm pulmonary nodule
[2017-07-21 15:05] LABS: QUANTIFERON GOLD Positive (Negative)
[2017-07-21] MEDS ORDERED: PEG3350/SOD SULF,BICARB,CL/KCL 4,000 ML SOLN.RECON PO ONE (18:00)
--- NOTE | 2017-07-21 19:21 | PN ---
Teaching Attending Note Name of Resident: Sarah Ybarra ATTENDING PHYSICIAN STATEMENT I saw and evaluated the patient. I reviewed the resident's note and discussed the case with the resident. I agree with the resident's findings and plan as documented. SUBJECTIVE: no fever or chills. has improved pain in ABd. no diarrhea OBJECTIVE: NAD Cv : RRR Lungs : CTAB Ext: NO edema Abd: soft, NT, ND , NL BS . LUQ OSMANI drainage in ASSESSMENT AND PLAN: 52 yo gentleman with no sign PMH who presneted with subjective fevers and abd paina nd was found to have Liver abscess 1- Liver abscess: no clear source yet. bacterial vs amebial G stain and cx neg so far. blood cx neg - need Colonoscopy to evaluate the colon as a source ( ulceration, diverticulitis, neoplasm ,,,,etc) - cont CTX and flagy' - follow Amebia Abs - cont OSMANI drainage 2- Prediabetes: A1c 5.9 diet and life style modification 3- Positive QT gold . no pulmonary sx. has chronic stable lung nodule - check cxray 4- DVT PX HLOC
[2017-07-22] MEDS: METRONIDAZOLE 500 MG PREMIXED 100 ML IVPB SCH ×2 (02:40→10:49)
[2017-07-22] MEDS: HEPARIN NA (PORCINE) 5,000 UNITS/ML 1ML VIAL SQ SCH (06:07)
--- NOTE | 2017-07-22 08:26 | PN ---
Physical Exam: SUBJECTIVE: Patient seen and examined. Pt finished half the GoLytely in preparation for colonscopy today. Pt feels better, inquiring about when he can go home. OSMANI drainage 10ml per pt overnight. No fever, chills, nausea, vomiting , diarrhea, headache, abdominal pain, chest pain, palpitations, sob. No events overnight. OBJECTIVE: Vital Signs Period Temp Pulse Resp BP Sys/Carrillo Pulse Ox Last 24 Hr 97.1 F-98.4 F 60-64 18-20 100-114/59-74 GENERAL: The patient is awake, alert, and fully oriented, in no acute distress. HEAD: Normal with no signs of trauma. EYES: Extraocular movements intact, sclera anicteric, conjunctiva clear. No ptosis. ENT: Moist mucous membranes. NECK: Trachea midline, full range of motion, supple. LUNGS: Breath sounds equal, clear to auscultation bilaterally, no wheezes, no crackles, no accessory muscle use. HEART: Regular rate and rhythm, + S1/S2. ABDOMEN: Soft, nontender, nondistended, normoactive bowel sounds, no guarding, no rebound. LUQ OSMANI drain in place. EXTREMITIES: Warm, well-perfused, no edema. NEUROLOGICAL: Cranial nerves II through XII grossly intact. Normal speech, gait steady. PSYCH: Normal mood, normal affect. SKIN: Warm, dry, normal turgor, no rashes or lesions noted Laboratory Results - last 24 hr 07/19/17 14:50 TB Test (QFT) Positive H Active Medications Generic Name Dose Route Start Last Admin Trade Name Freq PRN Reason Stop Dose Admin Hydromorphone HCl 0.5 mg 07/19/17 16:28 07/20/17 19:12 Dilaudid Injection - IVPB 0.5 mg Q4H PRN Administration PAIN CEFTRIAXONE 1 G/50 ML PREMIX 50 mls @ 100 mls/hr 07/18/17 20:15 07/21/17 10:16 Ceftriaxone 1 Gm-D5w Bag IVPB 100 mls/hr DAILY CLAY Administration Metronidazole 100 mls @ 100 mls/hr 07/18/17 20:15 07/22/17 02:40 Flagyl 500mg Premixed Ivpb - IVPB 100 mls/hr Q8H-IV CLAY Administration ASSESSMENT/PLAN: 52yo M with no significant PMH presents c/o abdominal pain x 2 weeks, found to have liver cyst on CT, admitted to Med-Surg. 1) liver cyst s/p drainage by IR 07/19/17 - Ddx: abscess vs parasitic vs Ca - OSMANI drain in place draining serous fluid - ID (Dr. Serrano) recs appreciated: - Day 5 of IV antibiotics, both Flagyl and Ceftriaxone - f/u cultures of abscess drainage for fungi, AFB, and Amebic PCR - f/u amebic serology - continue Dilaudid 0.5mg IVpush q4hr prn for pain - blood cultures (-) x 72 hrs 2) sigmoid thickening on CT - followed by GI (Dr. Alvarez) - f/u colonoscopy 3) Quantiferon gold (+) - no s/s of active infection (no leukocytosis, no fever) - f/u CXR - stable pulmonary nodule noted, to be followed as an outpatient 4) FEN - Fluids: encourage po - Electrolytes: wnl, continue to monitor - Nutrition: npo for colonoscopy 5) DVT prophylaxis - Heparin 5,000U SQ TID - Incentive spirometer Visit type - Emergency Visit Emergency Visit: Yes ED Registration Date: 07/18/17 Care time: The patient presented to the Emergency Department on the above date and was hospitalized for further evaluation of their emergent condition. - New Patient This patient is new to me today: No - Critical Care Critical Care patient: No
[2017-07-22 08:29] LABS: MCH 32.9 pg (25.7-33.7); MCHC 34.2 g/dl (32.0-35.9); MEAN CELL VOLUME 96.2 fl (80-96); MEAN PLT VOLUME 7.9 fl (7.5-11.1); PLATELET COUNT 469 K/MM3 (134-434); RDW 13.3 % (11.9-15.9); WHITE BLOOD COUNT 7.3 K/mm3 (4.0-10.0)
[2017-07-22 08:55] LABS: ANION GAP 6 (8-16); CALCIUM 8.5 mg/dL (8.5-10.1); CO2 30 mmol/L (21-32); CREATININE 0.6 mg/dL (0.7-1.3); GLUCOSE,RANDOM 87 mg/dL (74-106)
[2017-07-22] MEDS: CEFTRIAXONE 1 G/50 ML PREMIX 50 ML IVPB SCH (09:49)
--- NOTE | 2017-07-22 11:02 | PN ---
Progress Note (short form) - Note Progress Note: ID Clinically doing well Pain less and no fever Serology positive for amebiasis !! Selected Entries 07/22/17 09:48 Temperature 98.3 F Pulse Rate 62 Respiratory 18 Rate Blood Pressure 121/67 Abd minimal tendernss upper abd Laboratory Tests 07/19/17 07/19/17 07/19/17 07:45 14:40 14:50 WBC Hgb Plt Count INR 1.30 H BUN Total Bilirubin AST Alkaline Phosphatase C-Reactive Protein 15.4 H E. histolytica Antibody TB Test (QFT) Positive H 07/20/17 07/20/17 07/22/17 06:10 06:10 07:15 WBC 7.3 Hgb 13.4 D Plt Count 469 H INR BUN Total Bilirubin 0.3 AST 12 L Alkaline Phosphatase 105 C-Reactive Protein E. histolytica Antibody Positive H TB Test (QFT) 07/22/17 07:15 WBC Hgb Plt Count INR BUN 9 D Total Bilirubin AST Alkaline Phosphatase C-Reactive Protein E. histolytica Antibody TB Test (QFT) Assessment Amebic liver abscess Quant gold likely incidental TB abscesss less likley and chest xray negative Plan As culture of abscess no growth will stop Ceftriaxone Oral metronidazole 750 tid total 10 days Rx for intraluminal agent paromycin 7 days Positive TB test can be addressed latter post discharge I could see him outpt Zach Serrano MD Problem List - Problems (1) Pulmonary nodule Code(s): R91.1 - SOLITARY PULMONARY NODULE
[2017-07-22] MEDS ORDERED: PROPOFOL 20 ML ONE ×3 (13:40)
[2017-07-22] MEDS ORDERED: LIDOCAINE HCL 2% (20ML MULTI-DOSE VIAL) NR ONE (13:41)
[2017-07-22] MEDS ORDERED: metroNIDAZOLE 250 MG TABLET PO SCH (14:00)
--- NOTE | 2017-07-22 14:29 | PROC ---
Endoscopy Procedure Endoscopy procedure completed. Please see scanned procedure report.
--- NOTE | 2017-07-22 14:37 | PN ---
Progress Note, Physician History of Present Illness: A colonosocpy to the TI revealed cecal, ascending, transverse colon discrete superficial ulcerations. Biopsies taken. 2 small polyps were found and removed in sigmoid colon. - Current Medication List Current Medications: Active Medications Hydromorphone HCl (Dilaudid Injection -) 0.5 mg IVPB Q4H PRN PRN Reason: PAIN Last Admin: 07/20/17 19:12 Dose: 0.5 mg Metronidazole (Flagyl -) 750 mg PO TID CLAY - Objective Vital Signs: Vital Signs Temperature 98.3 F 07/22/17 09:48 Pulse Rate 62 07/22/17 09:48 Respiratory Rate 18 07/22/17 09:48 Blood Pressure 121/67 07/22/17 09:48 O2 Sat by Pulse Oximetry (%) 98 07/20/17 09:00 Constitutional: Yes: No Distress, Calm Eyes: Yes: Conjunctiva Clear HENT: Yes: Atraumatic Neck: Yes: Supple Cardiovascular: Yes: Regular Rate and Rhythm Respiratory: Yes: Regular Gastrointestinal: Yes: Normal Bowel Sounds, Soft. No: Tenderness, Vomiting Neurological: Yes: Alert, Oriented Labs: CBC, BMP 07/22/17 07:15 07/22/17 07:15 INR, PTT INR 1.30 (0.82-1.09) H 07/19/17 07:45 CBCD WBC 7.3 K/mm3 (4.0-10.0) 07/22/17 07:15 RBC 4.06 M/mm3 (4.00-5.60) 07/22/17 07:15 Hgb 13.4 GM/dL (11.7-16.9) D 07/22/17 07:15 Hct 39.1 % (35.4-49) 07/22/17 07:15 MCV 96.2 fl (80-96) H 07/22/17 07:15 MCHC 34.2 g/dl (32.0-35.9) 07/22/17 07:15 RDW 13.3 % (11.9-15.9) 07/22/17 07:15 Plt Count 469 K/MM3 (134-434) H 07/22/17 07:15 MPV 7.9 fl (7.5-11.1) 07/22/17 07:15 CMP Sodium 138 mmol/L (136-145) 07/22/17 07:15 Potassium 4.7 mmol/L (3.5-5.1) D 07/22/17 07:15 Chloride 102 mmol/L (98-107) 07/22/17 07:15 Carbon Dioxide 30 mmol/L (21-32) 07/22/17 07:15 Anion Gap 6 (8-16) L 07/22/17 07:15 BUN 9 mg/dL (7-18) D 07/22/17 07:15 Creatinine 0.6 mg/dL (0.7-1.3) L 07/22/17 07:15 Creat Clearance w eGFR > 60 (>60) 07/20/17 06:10 Calcium 8.5 mg/dL (8.5-10.1) 07/22/17 07:15 Total Bilirubin 0.3 mg/dL (0.2-1.0) 07/20/17 06:10 AST 12 U/L (15-37) L 07/20/17 06:10 ALT 21 U/L (12-78) 07/20/17 06:10 Alkaline Phosphatase 105 U/L (45-117) 07/20/17 06:10 Total Protein 6.5 g/dl (6.4-8.2) 07/20/17 06:10 Albumin 2.5 g/dl (3.4-5.0) L 07/20/17 06:10 Problem List - Problems (1) Liver abscess Code(s): K75.0 - ABSCESS OF LIVER (2) Abnormal CT of liver Code(s): R93.2 - ABNORMAL FINDINGS ON DX IMAGING OF LIVER AND BILIARY TRACT (3) Abnormal CT scan, colon Code(s): R93.3 - ABNORMAL FINDINGS ON DX IMAGING OF PRT DIGESTIVE TRACT (4) Diverticulosis Code(s): K57.90 - DVRTCLOS OF INTEST, PART UNSP, W/O PERF OR ABSCESS W/O BLEED (5) Colitis Code(s): K52.9 - NONINFECTIVE GASTROENTERITIS AND COLITIS, UNSPECIFIED Assessment/Plan infectious vs IBD. Await biopsies. Restart high fiber diet. Asacol HD 800 tid po. Office follow up in 1 weeks.
[2017-07-22 15:31] VITALS: BP 112/64; PULSE 86; TEMP 97.7
[2017-07-22] MEDS: HYDROmorphone HCL CARPU-JECT 1 MG/1 ML DISP.SYRIN IVPB PRN (15:42)
--- NOTE | 2017-07-22 15:48 | DS ---
Physical Exam: SUBJECTIVE: Patient seen and examined. Pt feels better, inquiring about when he can go home. OSMANI drainage 10ml per pt overnight. No fever, chills, nausea, vomiting, diarrhea, headache, abdominal pain, chest pain, palpitations, sob. No events overnight. OBJECTIVE: Vital Signs Period Temp Pulse Resp BP Sys/Carrillo Pulse Ox Last 24 Hr 97.1 F-98.4 F 55-86 15-20 100-121/59-74 98-100 PHYSICAL EXAM GENERAL: The patient is awake, alert, and fully oriented, in no acute distress. HEAD: Normal with no signs of trauma. EYES: Extraocular movements intact, sclera anicteric, conjunctiva clear. No ptosis. ENT: Moist mucous membranes. NECK: Trachea midline, full range of motion, supple. LUNGS: Breath sounds equal, clear to auscultation bilaterally, no wheezes, no crackles, no accessory muscle use. HEART: Regular rate and rhythm, + S1/S2. ABDOMEN: Soft, nontender, nondistended, normoactive bowel sounds, no guarding, no rebound. LUQ OSMANI drain in place. EXTREMITIES: Warm, well-perfused, no edema. NEUROLOGICAL: Cranial nerves II through XII grossly intact. Normal speech, gait steady. PSYCH: Normal mood, normal affect. SKIN: Warm, dry, normal turgor, no rashes or lesions noted LABS Laboratory Results - last 24 hr 07/20/17 07/22/17 07/22/17 06:10 07:15 07:15 WBC 7.3 RBC 4.06 Hgb 13.4 D Hct 39.1 MCV 96.2 H MCH 32.9 MCHC 34.2 RDW 13.3 Plt Count 469 H MPV 7.9 Sodium 138 Potassium 4.7 D Chloride 102 Carbon Dioxide 30 Anion Gap 6 L BUN 9 D Creatinine 0.6 L Random Glucose 87 D Calcium 8.5 E. histolytica Antibody Positive H HOSPITAL COURSE: Date of Admission:07/18/17 Date of Discharge: 07/22/17 52yo M with no significant PMH presents c/o abdominal pain x 2 weeks, found on CT to have (1) an abscess in the liver, (2) sigmoid thickening, and (3) a 5mm nodule on the Right lung. Abscess was drained by Interventional Radiology on , and a OSMANI drain is in place. Serology came back (+) for E. histolytica antibody on 07/22/17. Pt received 5 days of IV Flagyl and Ceftriaxone. Pt received a colonoscopy on 07/22/17, which revealed ulcers in the colon. Pt was started on Asacol TID. Quantiferon gold came back (+). CXR revealed no acute lung pathology. Pt was encouraged to f/u as an outpatient with a Chest CT. Pt is independent for ambulation and ADLs. Pt is medically stable for discharge home. Minutes to complete discharge: 45 Discharge Summary Reason For Visit: LIVER ABSCESS Current Active Problems Abnormal CT of liver (Acute) Abnormal CT scan, colon (Acute) Colitis (Acute) Liver abscess (Acute) Pulmonary nodule (Chronic) Condition: Improved - Instructions Diet, Activity, Other Instructions: You were treated for a liver abscess, which was found Entameba histolytica. E. Histolytica is usually transmitted by contaminated food or water, but can also be associated with venereal transmission through fecal-oral contact. Your abscess was drained and you have a drainage tube still in place. Please continue to empty and track how much fluid is draining into the bulb. When the amount of fluid draining in 24 hrs is less than 5ml, come back for follow-up imaging (either a CT scan with contrast, or a fistulogram) to re- assess your abscess. You also received a colonoscopy which showed ulcers in your colon, which could be from Irritable Bowel Disease or from an infectious cause. Biopsies were taken and are being tested to confirm the cause of your ulcers. Please eat a high fiber diet, and follow-up with Dr. Alvarez. You were also found to have a 5mm nodule in your Right lung, which has been stable. We recommend you follow this up with a Chest CT, to better characterize the nodule. Please continue taking your medications as prescribed. You will take your antibiotic, Flagyl,3 times per day for 5 more days. You will take your antiparasitic, Paromomycin, 3 tabs 3 times per day (a total of 9 tabs per day) for 7 days. You will take Asacol 3 times per day everyday until you follow-up with Dr. Alvarez. Please schedule an appointment to follow-up with your Primary Care Doctor (Dr. Donahue) within 1 week of leaving the hospital. Please schedule an appointment with your Gastrointestinal Doctor (Dr. Alvarez) within 1 week of leaving the hospital, to follow-up regarding the results of the biopsies taken during your colonoscopy. Please schedule an appointment to follow-up with your Infectious Disease Doctor (Dr. Serrano) within 1 week of leaving the hospital. Please return to the hospital immediately if you experience persistent or increasing abdominal pain, or for any medical emergency. Referrals: Jameel Serrano MD [Staff Physician] - 1 Week Mauro Alvarez MD [Staff Physician] - 1 Week Wen Donahue [Primary Care Provider] - 1 Week Disposition: HOME - Home Medications Comprehensive Discharge Medication List: Ambulatory Orders Mesalamine [Asacol HD -] 800 mg PO TID #90 tab 07/22/17 Metronidazole [Flagyl -] 750 mg PO TID #15 tablet 07/22/17 Paromomycin Sulfate 750 mg PO TID #63 capsule 07/22/17 This patient is new to me today: No Emergency Visit: Yes ED Registration Date: 07/18/17 Care time: The patient presented to the Emergency Department on the above date and was hospitalized for further evaluation of their emergent condition. Critical Care patient: No - Discharge Referral Referred to [facility] No
--- NOTE | 2017-07-22 16:02 | PN ---
Teaching Attending Note Name of Resident: Sarah Ybarra ATTENDING PHYSICIAN STATEMENT I saw and evaluated the patient. I reviewed the resident's note and discussed the case with the resident. I agree with the resident's findings and plan as documented. SUBJECTIVE: no fever or chills. has no abd pain . feels better OBJECTIVE: NAD Cv : RRR Lungs : CTAB Ext: NO edema Abd: soft, NT, ND , NL BS . LUQ OSMANI drainage in ASSESSMENT AND PLAN: 52 yo gentleman with no sign PMH who presneted with subjective fevers and abd paina nd was found to have Liver abscess 1- Liver abscess: with amebia serology positive flagyl for 6 more days ( total of 10 ) paromycin x 7 days follow up with IR to remove OSMANI drainage 2- colitis : colonoscopy with evidence of colitis , likely IBD . mesalamine at dc f/u with Gi to review the biopsies 2- Prediabetes: A1c 5.9 diet and life style modification 3- Positive QT gold . no pulmonary sx. has chronic stable lung nodule - check cxray with no infiltrate - f/u as out pt DC home
[2017-07-22] MEDS ORDERED: MESALAMINE 800 MG TABLET.DR PO SCH (22:00)
== END 2017-07-22 18:10 | disposition home or self-care (01) | DRG 279 ==
LOC: JER 08:11 → JERBED 16:20 → J6S 18:06
PROVIDERS: ADMIT Internal Medicine; ATTEND Internal Medicine
PROC: 0F9230Z Drainage of Left Lobe Liver with Drainage Device, Percutaneous Approach (ICD-10-PCS; principal; 2017-07-19)
PROC: 0DBN8ZX Excision of Sigmoid Colon, Via Natural or Artificial Opening Endoscopic, Diagnostic (ICD-10-PCS; 2017-07-22)
PROC: 0DBM8ZX Excision of Descending Colon, Via Natural or Artificial Opening Endoscopic, Diagnostic (ICD-10-PCS; 2017-07-22)
PROC: 0DBL8ZX Excision of Transverse Colon, Via Natural or Artificial Opening Endoscopic, Diagnostic (ICD-10-PCS; 2017-07-22)
DX: K75.0 Abscess of liver (principal); R91.1 Solitary pulmonary nodule; K63.3 Ulcer of intestine; D12.5 Benign neoplasm of sigmoid colon; B96.89 Other specified bacterial agents as the cause of diseases classified elsewhere; F17.210 Nicotine dependence, cigarettes, uncomplicated; R63.4 Abnormal weight loss; Z68.28 Body mass index [BMI] 28.0-28.9, adult; R73.03 Prediabetes; K58.0 Irritable bowel syndrome with diarrhea
CPT/HCPCS: 36415; 49405; 71010-TC; 74177-TC; 76098-TC; 76942-TC; 80048; 80053; 81003; 82272; 83036; 83605; 83690; 83735; 84100; 85025; 85027; 85610; 85730; 86140; 86480; 86753; 87040; 87070; 87075; 87086; 87205; 87389; 87899; 90732; 93005; 93010; 93306-TC; 99283-25; C1729; C1769; G0009; J1644; Q9967

== ENCOUNTER 2017-08-03 15:46 | Emergency (ER) | payer OTHER ==
--- NOTE | 2017-08-03 15:54 | PDOC ---
Rapid Medical Evaluation Medical Evaluation: Allergies Allergy/AdvReac Type Severity Reaction Status Date / Time No Known Allergies Allergy Verified 07/18/17 08:19 08/03/17 15:51 I have performed a brief in-person evaluation of this patient. The patient presents with a chief complaint of: abd pain surrounding luq drian . Placed by Dr Alvarez secondary to colon abscess Pertinent physical exam findings: vss, abd nondistended I have ordered the following: cbc. comp, ua The patient will proceed to the ED for further evaluation. <Maribel Huerta - Last Filed: 08/03/17 15:51> Medical Evaluation: Allergies Allergy/AdvReac Type Severity Reaction Status Date / Time No Known Allergies Allergy Verified 07/18/17 08:19 Vital Signs Temp Pulse Resp BP Pulse Ox 97.9 F 72 16 135/88 96 08/03/17 15:51 08/03/17 15:51 08/03/17 15:51 08/03/17 15:51 08/03/17 15:51 <Denise Barroso - Last Filed: 08/03/17 17:37> Time Seen by Provider: 08/03/17 15:51
[2017-08-03 15:55] VITALS: BP 135/88; PULSE 72; TEMP 97.9; BMI 26.4
[2017-08-03 16:24] LABS: BASOPHIL 0.8 % (0-2.0); MCH 32.6 pg (25.7-33.7); MCHC 33.9 g/dl (32.0-35.9); MEAN CELL VOLUME 96.2 fl (80-96); MEAN PLT VOLUME 9.1 fl (7.5-11.1); NEUTROPHILS 53.7 % (42.8-82.8); PLATELET COUNT 254 K/MM3 (134-434); RDW 14.1 % (11.9-15.9); WHITE BLOOD COUNT 9.8 K/mm3 (4.0-10.0)
[2017-08-03 16:26] LABS: URINE APPEARANCE CLEAR; URINE BILIRUBIN NEGATIVE (NEGATIVE); URINE BLOOD NEGATIVE (NEGATIVE); URINE COLOR STRAW; URINE GLUCOSE (UA) NEGATIVE (NEGATIVE); URINE KETONE NEGATIVE (NEGATIVE); URINE NITRITE NEGATIVE (NEGATIVE); URINE PROTEIN NEGATIVE (NEGATIVE); URINE UROBILINOGEN NEGATIVE mg/dL (0.2-1.0)
--- NOTE | 2017-08-03 17:44 | PDOC ---
History of Present Illness <Denise Barroso - Last Filed: 08/03/17 17:37> - General History Source: Patient Exam Limitations: No Limitations - History of Present Illness Initial Comments: 08/03/17 17:58 The patient is a 52 year old male, with no significant past medical history, who presents to the emergency department with a tube on the left side of his abdomen, placed on 07/18/2017 for liver abscess drainage. He reports that he was sent to GI for follow up. GI saw the patient and referred him to general surgery in order to get the tube removed. Today the patient went to his appointment with surgery who was unable to remove the tube, since he was not the one who put it in. Surgery advised the patient to come to the ED to see if they can get the interventional radiologist to take out the tube. Upon presentation the patient denies pain but notes discomfort when he sleeps. The patient denies chest pain, shortness of breath, headache and dizziness. Denies fever, chills, nausea, vomit, diarrhea and constipation. Denies dysuria, frequency, urgency and hematuria. Allergies: None Past surgical history: Left abominal tube placement (Liver drainage) Social history: Alcohol use (weekends), cigarette use (pack a day for 30+ years) . No drug use reported <Lalo Norman - Last Filed: 08/03/17 18:01> - General Chief Complaint: Pain, Acute Stated Complaint: FOLLOW-UP Time Seen by Provider: 08/03/17 15:51 Past History - Past Medical History Anemia: No Asthma: No Cancer: No Cardiac Disorders: No CVA: No COPD: No CHF: No Dementia: No Diabetes: No GI Disorders: Yes (Colon and Liver disease) Disorders: No HTN: No Hypercholesterolemia: No Liver Disease: No Seizures: No Thyroid Disease: No - Surgical History Abdominal Surgery: No Appendectomy: No Cardiac Surgery: No Cholecystectomy: No Lung Surgery: No Neurologic Surgery: No Orthopedic Surgery: No - Immunization History Immunization Up to Date: Yes - Suicide/Smoking/Psychosocial Hx Smoking History: Former smoker Have you smoked in the past 12 months: Yes Number of Cigarettes Smoked Daily: 10 If you are a former smoker, when did you quit?: 3wks Information on smoking cessation initiated: No 'Breaking Loose' booklet given: 10/29/17 Hx Alcohol Use: No Drug/Substance Use Hx: No Substance Use Type: None <Denise Barroso - Last Filed: 08/03/17 17:37> <Lalo Norman - Last Filed: 08/03/17 18:01> - Past Medical History Allergies/Adverse Reactions: Allergies Allergy/AdvReac Type Severity Reaction Status Date / Time No Known Allergies Allergy Verified 07/18/17 08:19 Home Medications: Ambulatory Orders NK [No Known Home Medication] 08/03/17 Review of Systems - Review of Systems Able to Perform ROS?: Yes Comments:: 08/03/17 17:59 GENERAL/CONSTITUTIONAL: No fever or chills. No weakness. HEAD, EYES, EARS, NOSE AND THROAT: No change in vision. No ear pain or discharge. No sore throat.- CARDIOVASCULAR: No chest pain or shortness of breath RESPIRATORY: No cough, wheezing, or hemoptysis. GASTROINTESTINAL: No nausea, vomiting, diarrhea or constipation. GENITOURINARY: No dysuria, frequency, or change in urination. MUSCULOSKELETAL: No joint or muscle swelling or pain. No neck or back pain. SKIN: No rash NEUROLOGIC: No headache, vertigo, loss of consciousness, or change in strength/ sensation. ENDOCRINE: No increased thirst. No abnormal weight change HEMATOLOGIC/LYMPHATIC: No anemia, easy bleeding, or history of blood clots. ALLERGIC/IMMUNOLOGIC: No hives or skin allergy. <Lalo Norman - Last Filed: 08/03/17 18:01> *Physical Exam - Vital Signs Last Vital Signs Temp Pulse Resp BP Pulse Ox 97.9 F 72 16 135/88 96 08/03/17 15:51 08/03/17 15:51 08/03/17 15:51 08/03/17 15:51 08/03/17 15:51 <Denise Barroso - Last Filed: 08/03/17 17:37> - Vital Signs Last Vital Signs Temp Pulse Resp BP Pulse Ox 97.9 F 72 16 135/88 96 08/03/17 15:51 08/03/17 15:51 08/03/17 15:51 08/03/17 15:51 08/03/17 15:51 - Physical Exam Comments: 08/03/17 17:59 GENERAL: Awake, alert, and fully oriented, in no acute distress HEAD: No signs of trauma, normocephalic, atraumatic EYES: PERRLA, EOMI, sclera anicteric, conjunctiva clear ENT: Auricles normal inspection, hearing grossly normal, nares patent, oropharynx clear without exudates. Moist mucosa NECK: Normal ROM, supple, no lymphadenopathy, JVD, or masses LUNGS: No distress, speaks full sentences, clear to auscultation bilaterally HEART: Regular rate and rhythm, normal S1 and S2, no murmurs, rubs or gallops, peripheral pulses normal and equal bilaterally. ABDOMEN: (+) Nontender at the site of the tube. Soft belly, no overt purelance, no erythema where the drain goes through the skin. Normoactive bowel sounds. No guarding, no rebound. No masses EXTREMITIES : Normal inspection, Normal range of motion, no edema. No clubbing or cyanosis. NEUROLOGICAL: Cranial nerves II through XII grossly intact. Normal speech, normal gait, no focal sensorimotor deficits SKIN: Warm, Dry, normal turgor, no rashes or lesions noted. <Lalo Norman - Last Filed: 08/03/17 18:01> ED Treatment Course - LABORATORY CBC & Chemistry Diagram: 08/03/17 16:20 08/03/17 16:20 - ADDITIONAL ORDERS Additional order review: Laboratory Results 08/03/17 16:20 Urine Color Straw Urine Appearance Clear Urine pH 5.0 D Ur Specific [place] 1.005 Urine Protein Negative Urine Glucose (UA) Negative Urine Ketones Negative Urine Blood Negative Urine Nitrite Negative Urine Bilirubin Negative Urine Urobilinogen Negative 08/03/17 16:20 RBC 4.36 MCV 96.2 H MCHC 33.9 RDW 14.1 MPV 9.1 D Neutrophils % 53.7 D Lymphocytes % 36.3 D Monocytes % 7.2 Eosinophils % 2.0 Basophils % 0.8 <Denise Barroso - Last Filed: 08/03/17 17:37> - LABORATORY CBC & Chemistry Diagram: 08/03/17 16:20 08/03/17 16:20 - ADDITIONAL ORDERS Additional order review: Laboratory Results 08/03/17 16:20 Urine Color Straw Urine Appearance Clear Urine pH 5.0 D Ur Specific [place] 1.005 Urine Protein Negative Urine Glucose (UA) Negative Urine Ketones Negative Urine Blood Negative Urine Nitrite Negative Urine Bilirubin Negative Urine Urobilinogen Negative 08/03/17 16:20 RBC 4.36 MCV 96.2 H MCHC 33.9 RDW 14.1 MPV 9.1 D Neutrophils % 53.7 D Lymphocytes % 36.3 D Monocytes % 7.2 Eosinophils % 2.0 Basophils % 0.8 <Lalo Norman - Last Filed: 08/03/17 18:01> Medical Decision Making - Medical Decision Making 08/03/17 18:[address] Alvarez. He was surprised that Surgery was unable to take it out. He states that he gives permission for the drain to be removed. Dr. Barroso spoke to the [employer] who advised her to tell the patient to call Quy[facility] Temple to schedule an appointment at [phone] <Lalo Norman - Last Filed: 08/03/17 18:01> *DC/Admit/Observation/Transfer <Denise Barroso - Last Filed: 08/03/17 17:37> - Attestations Scribe Attestion: 08/03/17 17:59 Documentation prepared by Lalo Norman, acting as medical orderly for Denise Barroso MD <Lalo Norman - Last Filed: 08/03/17 18:01> Diagnosis at time of Disposition: History of drainage of abscess, Encounter for drainage of abscess - Referrals Referrals: Wen Donahue [Primary Care Provider] - Mauro Alvarez MD [Staff Physician] - Darian Dunlap MD [Staff Physician] - - Patient Instructions Printed Discharge Instructions: DI with Wound Drains Additional Instructions: PLEASE CALL INTERVENTIONAL RADIOLOGY AND SPEAK TO CRIS TEMPLE TO MAKE AN APPOINTMENT TO HAVE THE DRAIN REMOVED . YOU NEED TO CALL [phone] tomorrow TO SET AN APPOINTMENT - Post Discharge Activity
[2017-08-03 18:10] LABS: ALBUMIN 3.9 g/dl (3.4-5.0); ANION GAP 7 (8-16); CO2 28 mmol/L (21-32)
[2017-08-03 18:16] LABS: ALK PHOS 88 U/L (45-117); BILIRUBIN,TOTAL 0.4 mg/dL (0.2-1.0); CREATININE 0.6 mg/dL (0.7-1.3); GLUCOSE,RANDOM 86 mg/dL (74-106); SGPT/ALT 31 U/L (12-78); TOT PROT 8.1 g/dl (6.4-8.2)
[2017-08-03 18:26] LABS: SGOT/AST 23 U/L (15-37)
[2017-08-03 19:37] LABS: URINE LEUK ESTERASE Negative (NEGATIVE)
== END 2017-08-03 17:51 | disposition home or self-care (01) ==
LOC: JER 15:46
DX: Z48.03 Encounter for change or removal of drains (principal)
CPT/HCPCS: 36415; 80053; 81003; 85025; 99282-25

== ENCOUNTER 2017-08-05 07:25 | Emergency (ER) | payer OTHER ==
[2017-08-05 07:58] VITALS: BMI 26.4
--- NOTE | 2017-08-05 08:14 | PDOC ---
History of Present Illness - General History Source: Patient Exam Limitations: No Limitations - History of Present Illness Initial Comments: 08/05/17 09:37 The patient is a 52 year old male, with a significant past medical history of colitis and liver abscess, who presents to the emergency department with a tube on the left side of his abdomen, placed on 07/18/2017 for liver abscess drainage. Patient was seen by surgery on 08/03 who prompted him to present to the ED since they were not the ones that placed it. The patients GI Dr. Alvarez approved removal of the tube. Patient presents today with the same complaint as on 08/03. Surgery advised the patient to come to the ED to see if they can get the interventional radiologist to take out the tube. The patient reports pain at the LUQ above the tube insertion site. He notes that the pain is worse when coughing and taking deep breaths. He notes that the tube was not changed since 07/18 and now reports foul smell. He states that the drain is clean, but he noticed brown clots. The patient denies chest pain, shortness of breath, headache and dizziness. Denies fever, chills, nausea, vomit, diarrhea and constipation. Denies dysuria, frequency, urgency and hematuria. Allergies: None Past surgical history: Left abominal tube placement (Liver drainage) Social history: Alcohol use (weekends), cigarette use (pack a day for 30+ years) . No drug use reported <Laila Solorzano - Last Filed: 08/05/17 09:37> <Melissa Ferrera - Last Filed: 08/05/17 11:53> - General Chief Complaint: Pain, Acute Stated Complaint: LT ABD PAIN Time Seen by Provider: 08/05/17 08:14 Past History <Laila Solorzano - Last Filed: 08/05/17 09:37> - Past Medical History Anemia: No Asthma: No Cancer: No Cardiac Disorders: No CVA: No COPD: No CHF: No Dementia: No Diabetes: No GI Disorders: Yes (Colon and Liver disease) Disorders: No HTN: No Hypercholesterolemia: No Liver Disease: No Seizures: No Thyroid Disease: No - Surgical History Abdominal Surgery: No Appendectomy: No Cardiac Surgery: No Cholecystectomy: No Lung Surgery: No Neurologic Surgery: No Orthopedic Surgery: No - Immunization History Immunization Up to Date: Yes - Suicide/Smoking/Psychosocial Hx Smoking History: Never smoked Have you smoked in the past 12 months: Yes Number of Cigarettes Smoked Daily: 10 If you are a former smoker, when did you quit?: 3wks 'Breaking Loose' booklet given: 07/18/17 Hx Alcohol Use: No Drug/Substance Use Hx: No Substance Use Type: None <Melissa Ferrera - Last Filed: 08/05/17 11:53> - Past Medical History Allergies/Adverse Reactions: Allergies Allergy/AdvReac Type Severity Reaction Status Date / Time No Known Allergies Allergy Verified 08/05/17 07:54 Home Medications: Ambulatory Orders Bacitracin - [Bacitracin Topical Ointment -] 1 applic TP BID #1 applic 08/05/17 Review of Systems - Review of Systems Able to Perform ROS?: Yes Comments:: 08/05/17 09:37 GENERAL/CONSTITUTIONAL: No fever or chills. No weakness. HEAD, EYES, EARS, NOSE AND THROAT: No change in vision. No ear pain or discharge. No sore throat. GASTROINTESTINAL: +LUQ pain. No nausea, vomiting, diarrhea or constipation. GENITOURINARY: No dysuria, frequency, or change in urination. CARDIOVASCULAR: No chest pain or shortness of breath. RESPIRATORY: No cough, wheezing, or hemoptysis. MUSCULOSKELETAL: No joint or muscle swelling or pain. No neck or back pain. SKIN: No rash NEUROLOGIC: No headache, vertigo, loss of consciousness, or change in strength/ sensation. ENDOCRINE: No increased thirst. No abnormal weight change. HEMATOLOGIC/LYMPHATIC: No anemia, easy bleeding, or history of blood clots. ALLERGIC/IMMUNOLOGIC: No hives or skin allergy. <Laila Solorzano - Last Filed: 08/05/17 09:37> *Physical Exam - Vital Signs Last Vital Signs Temp Pulse Resp BP Pulse Ox 98.8 F 90 19 137/77 96 08/05/17 07:54 08/05/17 07:54 08/05/17 07:54 08/05/17 07:54 08/05/17 07:54 - Physical Exam Comments: 08/05/17 09:37 GENERAL: Awake, alert, and fully oriented, in no acute distress HEAD: No signs of trauma EYES: PERRLA, EOMI, sclera anicteric, conjunctiva clear ENT: Auricles normal inspection, hearing grossly normal, nares patent, oropharynx clear without exudates. Moist mucosa NECK: Normal ROM, supple, no lymphadenopathy, JVD, or masses LUNGS: Breath sounds equal, clear to auscultation bilaterally. No wheezes, and no crackles HEART: Regular rate and rhythm, normal S1 and S2, no murmurs, rubs or gallops ABDOMEN: +Tender just at the region of the drain. Soft, normoactive bowel sounds. No guarding, no rebound. No masses EXTREMITIES: Normal range of motion, no edema. No clubbing or cyanosis. No cords, erythema, or tenderness NEUROLOGICAL: Cranial nerves II through XII grossly intact. Normal speech, normal gait SKIN: Warm, Dry, normal turgor, no rashes or lesions noted. <Laila Solorzano - Last Filed: 08/05/17 09:37> - Vital Signs Last Vital Signs Temp Pulse Resp BP Pulse Ox 98.8 F 90 19 137/77 96 08/05/17 07:54 08/05/17 07:54 08/05/17 07:54 08/05/17 07:54 08/05/17 07:54 <Melissa Ferrera - Last Filed: 08/05/17 11:53> ED Treatment Course - LABORATORY CBC & Chemistry Diagram: 08/05/17 09:42 08/05/17 09:33 <Melissa Ferrera - Last Filed: 08/05/17 11:53> Medical Decision Making - Medical Decision Making 08/05/17 11:34 Patient presents to the ED for pain and redness around the site of his tube. Requesting removal of the tube. Denies fevers, nausea or vomiting. Abdomen is non tender on my exam except for the immediate area around the tube. Case discussed with IR, who agreed to remove the tube but requested CT to evaluate for abscess reaccumulation first. CT shows almost complete resolution of the collection. Tube removed by IR. Will discharge home. <Melissa Ferrera - Last Filed: 08/05/17 11:53> *DC/Admit/Observation/Transfer - Attestations Scribe Attestion: 08/05/17 09:40 Documentation prepared by NAHOMY FlemingE, acting as center medical specialist for Melissa Ferrera MD, /DO. <Laila Solorzano - Last Filed: 08/05/17 09:37> - Discharge Dispostion Admit: No <Melissa Ferrera - Last Filed: 08/05/17 11:53> Diagnosis at time of Disposition: Abscess - Discharge Dispostion Disposition: HOME Condition at time of disposition: Good - Prescriptions Prescriptions: Bacitracin - [Bacitracin Topical Ointment -] 1 applic TP BID #1 applic - Referrals Referrals: Wen Donahue [Primary Care Provider] - - Patient Instructions Printed Discharge Instructions: Skin Wound Additional Instructions: use the bacitracin on the wound at least twice every day. return to the ED for new or changing symptoms, especially fever, nausea and vomiting, or abdominal pain. - Post Discharge Activity Forms/Work/School Notes: Back to Work
[2017-08-05 09:47] LABS: MCH 32.3 pg (25.7-33.7); MCHC 33.7 g/dl (32.0-35.9); MEAN PLT VOLUME 8.7 fl (7.5-11.1); PLATELET COUNT 224 K/MM3 (134-434); RDW 14.3 % (11.9-15.9); WHITE BLOOD COUNT 12.6 K/mm3 (4.0-10.0)
[2017-08-05 10:17] LABS: ALBUMIN 3.8 g/dl (3.4-5.0); ANION GAP 7 (8-16); BILIRUBIN,TOTAL 0.7 mg/dL (0.2-1.0); CALCIUM 9.4 mg/dL (8.5-10.1); CO2 28 mmol/L (21-32); CREATININE 0.6 mg/dL (0.7-1.3); GLUCOSE,RANDOM 86 mg/dL (74-106); SGOT/AST 16 U/L (15-37); SGPT/ALT 31 U/L (12-78); TOT PROT 8.3 g/dl (6.4-8.2)
[2017-08-05 10:18] LABS: ALK PHOS 100 U/L (45-117)
[2017-08-05] MEDS ORDERED: BACITRACIN 0.9 GM PACKET TP ONE (11:12)
[2017-08-05] MEDS ORDERED: BACITRACIN 0.9 GM PACKET ONE (11:14)
[2017-08-05 11:31] VITALS: BP 129/73; PULSE 77; TEMP 98.2
== END 2017-08-05 12:05 | disposition home or self-care (01) ==
LOC: JER 07:25
PROC: 0FP030Z Removal of Drainage Device from Liver, Percutaneous Approach (ICD-10-PCS; principal; 2017-08-05)
DX: L02.91 Cutaneous abscess, unspecified (principal); K92.9 Disease of digestive system, unspecified; Z87.891 Personal history of nicotine dependence
CPT/HCPCS: 36415; 74160-TC; 80053; 85027; 99282-25

== ENCOUNTER 2021-06-14 13:23 | Observation (INO) | payer SELFPAY ==
[2021-06-14] MEDS ORDERED: LIDOCAINE 5% TOPICAL PATCH TP ONE (14:22)
[2021-06-14] MEDS ORDERED: LIDOCAINE 5% TOPICAL PATCH ONE (14:46)
[2021-06-14 14:53] LABS: BASO % 0.6 % (0-2.0); HEMATOCRIT 39.6 % (35.4-49); HEMOGLOBIN 13.8 GM/dL (11.7-16.9); LYMPH % 26.4 % (8-40); MCH 34.4 pg (25.7-33.7); MCHC 34.9 g/dl (32.0-35.9); MEAN CELL VOLUME 98.6 fl (80-96); MEAN PLT VOLUME 9.4 fl (7.5-11.1); MONO % 5.3 % (3.8-10.2); NEUT % 65.7 % (42.8-82.8); PLATELET COUNT 160 10^3/uL (134-434); RBC 4.01 M/mm3 (4.00-5.60); RDW 13.5 % (11.9-15.9); WHITE BLOOD COUNT 7.6 K/mm3 (4.0-10.0)
[2021-06-14 15:14] LABS: CHLORIDE 108 mmol/L (98-107); SODIUM 140 mmol/L (136-145)
[2021-06-14 15:17] LABS: ALBUMIN 3.7 g/dl (3.4-5.0); BLOOD UREA NITROGEN 11.9 mg/dL (7-18); CALCIUM 8.6 mg/dL (8.5-10.1)
[2021-06-14 15:18] LABS: ANION GAP 4 MMOL/L (8-16); CO2 28 mmol/L (21-32); GLUCOSE,RANDOM 82 mg/dL (74-106); LIPASE 110 U/L (73-393)
[2021-06-14 15:20] LABS: SGPT/ALT 31 U/L (13-61)
[2021-06-14 15:21] LABS: CREATININE 0.7 mg/dL (0.55-1.3); SGOT/AST 16 U/L (15-37)
[2021-06-14 15:22] LABS: BILIRUBIN,TOTAL 0.6 mg/dL (0.2-1); TOT PROT 7.2 g/dl (6.4-8.2)
[2021-06-14 15:23] LABS: ALK PHOS 78 U/L (45-117)
[2021-06-14] MEDS ORDERED: ACETAMINOPHEN 500 MG TABLET (FP) PO ONE (15:51)
[2021-06-14] MEDS ORDERED: FAMOTIDINE 20 MG/50 ML IVPB 20 MG/50 ML MG IVPB ONE ×2 (15:52→16:52)
[2021-06-14] MEDS ORDERED: ACETAMINOPHEN 325 MG TABLET (FP) ONE (16:52)
[2021-06-14] MEDS ORDERED: ACETAMINOPHEN 325 MG TABLET (FP) PO PRN (18:35)
[2021-06-14] MEDS ORDERED: GEMFIBROZIL 600 MG TABLET (FP) PO SCH ×2 (22:00→22:05)
[2021-06-14] MEDS ORDERED: LIDOCAINE PATCH REMOVAL MC ONE (22:00)
[2021-06-15] MEDS ORDERED: LIDOCAINE PATCH REMOVAL MC ONE (03:00)
[2021-06-15 04:09] VITALS: BMI 29.9
[2021-06-15] MEDS: GEMFIBROZIL 600 MG TABLET (FP) PO SCH ×2 (06:22→17:31)
[2021-06-15 08:58] LABS: CHOLESTEROL 181 mg/dL (50-200); TRIGLYCERIDES 142 mg/dL (0-150)
[2021-06-15 08:59] LABS: LDL CHOLESTEROL (ONLY SJRH) 130 mg/dL (5-100)
[2021-06-15 09:01] LABS: HDL CHOLESTEROL 29 mg/dL (40-60)
[2021-06-15] MEDS ORDERED: PT OWN MED DRAWER 7, Y5N ONE ×3 (09:31→17:30)
[2021-06-15] MEDS: ASPIRIN 81 MG CHEWABLE TABLETS PO SCH (09:44)
[2021-06-15] MEDS: PANTOPRAZOLE 40 MG TABLET PO SCH (09:44)
[2021-06-16] MEDS ORDERED: PT OWN MED DRAWER 7, Y5N ONE ×2 (06:29→18:08)
[2021-06-16] MEDS: GEMFIBROZIL 600 MG TABLET (FP) PO SCH ×2 (06:30→18:09)
[2021-06-16] MEDS: PANTOPRAZOLE 40 MG TABLET PO SCH (10:32)
[2021-06-16] MEDS: ASPIRIN 81 MG CHEWABLE TABLETS PO SCH (10:32)
[2021-06-17] MEDS: GEMFIBROZIL 600 MG TABLET (FP) PO SCH (06:09)
[2021-06-17 08:37] LABS: BASO % 0.7 % (0-2.0); EOS % 3.9 % (0-4.5); HEMATOCRIT 46.9 % (35.4-49); HEMOGLOBIN 16.4 GM/dL (11.7-16.9); LYMPH % 29.3 % (8-40); MCH 34.8 pg (25.7-33.7); MEAN CELL VOLUME 99.5 fl (80-96); MEAN PLT VOLUME 9.9 fl (7.5-11.1); MONO % 9.1 % (3.8-10.2); PLATELET COUNT 181 10^3/uL (134-434); RBC 4.71 M/mm3 (4.00-5.60); RDW 13.3 % (11.9-15.9); WHITE BLOOD COUNT 6.1 K/mm3 (4.0-10.0)
[2021-06-17 09:08] LABS: BLOOD UREA NITROGEN 11.8 mg/dL (7-18); MAGNESIUM 2.5 mg/dL (1.8-2.4)
[2021-06-17 09:10] LABS: CREATININE 0.7 mg/dL (0.55-1.3)
[2021-06-17 09:11] LABS: BILIRUBIN,TOTAL 0.6 mg/dL (0.2-1); PHOSPHOROUS 3.8 mg/dL (2.5-4.9)
[2021-06-17] MEDS ORDERED: REGADENOSON 0.4 MG/5 ML PRE-FILLED SYRINGE IVPUSH ONE ×2 (09:41→09:45)
[2021-06-17] MEDS: ASPIRIN 81 MG CHEWABLE TABLETS PO SCH ×2 (15:02)
[2021-06-17] MEDS: PANTOPRAZOLE 40 MG TABLET PO SCH ×2 (15:03)
[2021-06-17] MEDS: OMEGA-3 ACID ETHYL ESTERS (FATTY-ACIDS) 1 GM CAPSULE (FP) PO SCH ×2 (15:03)
[2021-06-17] MEDS: ENOXAPARIN NA (PORCINE) 40 MG/0.4 ML DISP.SYRIN SQ SCH ×2 (15:05→15:06)
[2021-06-17 15:11] VITALS: TEMP 98
[2021-06-17 15:15] VITALS: BP 134/86; PULSE 71
[2021-06-17] MEDS ORDERED: ATORVASTATIN CA 40 MG TABLET (FP) PO SCH (22:00)
== END 2021-06-17 16:52 | disposition home or self-care (01) ==
LOC: JER 13:23 → JERBED 17:25 → J4W 06-15 00:01
PROVIDERS: ADMIT Internal Medicine
CPT/HCPCS: 36415; 71046-TC-FY; 76705-TC; 78452-TC; 80053; 80061; 82550; 83690; 83735; 84100; 84484; 85025; 93005; 93010; 93017; 93306-TC; 99285-25; A9502; C9803; G0378; J2785; U0003; U0005

== ENCOUNTER 2023-03-30 14:43 | Emergency (ER) | payer OTHER ==
[2023-03-30 14:52] VITALS: BP 129/78; PULSE 76; RESP 18; TEMP 98.2; BMI 31.8
[2023-03-30] MEDS ORDERED: LIDOCAINE 5% TOPICAL PATCH TP ONE (16:53)
[2023-03-30] MEDS ORDERED: ACETAMINOPHEN 500 MG TABLET (FP) PO ONE (16:53)
[2023-03-30] MEDS ORDERED: predniSONE 20 MG TABLET (UD) PO ONE (16:53)
[2023-03-30] MEDS ORDERED: ACETAMINOPHEN 500 MG TABLET (FP) ONE (17:03)
[2023-03-30] MEDS ORDERED: predniSONE 20 MG TABLET (UD) ONE (17:03)
[2023-03-30] MEDS ORDERED: LIDOCAINE 5% TOPICAL PATCH ONE (17:03)
[2023-03-30] MEDS ORDERED: LIDOCAINE PATCH REMOVAL MC SCH (22:00)
== END 2023-03-30 17:31 | disposition home or self-care (01) ==
LOC: JERFT 14:43
DX: M75.31 Calcific tendinitis of right shoulder (principal); M75.51 Bursitis of right shoulder; M19.011 Primary osteoarthritis, right shoulder; M25.511 Pain in right shoulder
CPT/HCPCS: 73030-TC-RT-FY; 99283-25